=== PATIENT | male | born 1955 | race African-American/Black ===

== ENCOUNTER 2022-10-14 20:07 | Emergency (ER) | payer MEDICAID ==
[~2022-10-14] VITALS: Ht 172.7 cm; Wt 99.8 kg
[2022-10-14 20:09] VITALS: BP 142/77
[2022-10-14 20:10] VITALS: BP 142/77
[2022-10-14 21:42] LABS: BASOPHILS % (AUTO) 0.6 % (0.0-2.0); EOSINOPHILS # (AUTO) 0.1 K/uL (0-0.4); EOSINOPHILS % (AUTO) 2.4 % (0.0-4.0); HEMATOCRIT 37.7 % (36-52); HEMOGLOBIN 12.5 g/dL (12.0-18.0); LYMPHOCYTES # (AUTO) 1.3 K/uL (2.0-11.5); LYMPHOCYTES % (AUTO) 30.2 % (20.5-51.1); MEAN CORPUSCULAR HEMOGLOBIN 28 pg (27-31); MEAN CORPUSCULAR HGB CONC 33 g/dL (33-37); MEAN CORPUSCULAR VOLUME 84.4 fL (80-94); MONOCYTES # (AUTO) 0.5 K/uL (0.8-1.0); MONOCYTES % (AUTO) 10.8 % (1.7-9.3); NEUTROPHILS # (AUTO) 2.5 K/uL (1.8-7.7); PLATELET COUNT (AUTO) 310 K/uL (140-450); RED BLOOD CELL COUNT(AUTO) 4.47 MIL/uL (4.20-6.10); RED CELL DISTRIBUTION WIDTH 15.7 % (11.6-13.7); WHITE BLOOD COUNT (AUTO) 4.4 K/uL (4.8-10.8)
[2022-10-14 22:02] LABS: ALBUMIN 3.3 g/dL (3.4-5.0); ANION GAP 9.3 (8-16); CARBON DIOXIDE 31.9 mmol/L (21-32); CREATININE 0.9 mg/dL (0.6-1.3); POTASSIUM 4.2 mmol/L (3.5-5.1); TOTAL BILIRUBIN 0.2 mg/dL (0.0-1.0)
--- NOTE | 2022-10-14 22:45 | NUR ---
Dr. Cee examining patient.
[2022-10-14] MEDS ORDERED: ACETAMINOPHEN EXTRA STRENGTH 500 MG TAB PO ONE (22:50)
--- NOTE | 2022-10-14 23:00 | NUR ---
PT TAKEN TO XRAY
--- NOTE | 2022-10-15 01:47 | NUR ---
PT TAKEN TO BED 9
--- NOTE | 2022-10-15 02:00 | NUR ---
Dr. Cee examining patient.
[2022-10-15] MEDS ORDERED: ACET-10509 PO (02:05)
--- NOTE | 2022-10-15 02:10 | NUR ---
Patient does not wish to proceed with medical care recommended by . Patient given information related to possible complications, up to and including , which could occur as a result of leaving hospital at this time. Patient verbalizes understanding of risks involved leaving against medical advice. Patient has signed AMA form.
[2022-10-16] MEDS ORDERED: NAPR-54 PO (09:40)
== END 2022-10-15 02:10 | disposition home or self-care (01) ==
LOC: MED 20:07
DX: M79.604 Pain in right leg (principal); I10 Essential (primary) hypertension; Z79.899 Other long term (current) drug therapy; Z98.890 Other specified postprocedural states
CPT/HCPCS: 36415; 73502; 80053; 85025; 99284

== ENCOUNTER 2022-10-16 05:47 | Emergency (ER) | payer MEDICAID ==
[~2022-10-16] VITALS: Ht 172.7 cm; Wt 99.8 kg
[~2022-10-16 05:47] MED LIST: ACET-10509 PO
[2022-10-16 05:55] VITALS: BP 179/98
--- NOTE | 2022-10-16 06:10 | NUR ---
Provided sandwiches and orange juice as request
--- NOTE | 2022-10-16 06:56 | NUR ---
Patient taken to bed 1.
[2022-10-16] MEDS ORDERED: KETOROLAC 30 MG/ML VIAL IVP ONE (07:10)
--- NOTE | 2022-10-16 07:42 | NUR ---
ON DUTY RECEIVED PT LYING ON BED LETHARGIC. IV STARTED @RAC 20G. TORADOL GIVEN IVP. LAB DRAWN BY THE WAY.
[2022-10-16 08:34] LABS: BASOPHILS % (AUTO) 0.5 % (0.0-2.0); EOSINOPHILS # (AUTO) 0.1 K/uL (0-0.4); EOSINOPHILS % (AUTO) 1.3 % (0.0-4.0); HEMATOCRIT 39.1 % (36-52); HEMOGLOBIN 12.8 g/dL (12.0-18.0); LYMPHOCYTES # (AUTO) 0.9 K/uL (2.0-11.5); LYMPHOCYTES % (AUTO) 18.4 % (20.5-51.1); MEAN CORPUSCULAR HEMOGLOBIN 28 pg (27-31); MEAN CORPUSCULAR HGB CONC 33 g/dL (33-37); MEAN CORPUSCULAR VOLUME 84.4 fL (80-94); MONOCYTES # (AUTO) 0.5 K/uL (0.8-1.0); MONOCYTES % (AUTO) 9.3 % (1.7-9.3); NEUTROPHILS # (AUTO) 3.6 K/uL (1.8-7.7); NEUTROPHILS % (AUTO) 70.5 % (42.2-75.2); PLATELET COUNT (AUTO) 293 K/uL (140-450); RED BLOOD CELL COUNT(AUTO) 4.63 MIL/uL (4.20-6.10); RED CELL DISTRIBUTION WIDTH 15.4 % (11.6-13.7); WHITE BLOOD COUNT (AUTO) 5.1 K/uL (4.8-10.8)
[2022-10-16 09:11] LABS: ALBUMIN 3.4 g/dL (3.4-5.0); ANION GAP 9.9 (8-16); CARBON DIOXIDE 34.9 mmol/L (21-32); CREATININE 0.7 mg/dL (0.6-1.3); PHOSPHORUS 2.8 mg/dL (2.5-4.9); POTASSIUM 3.8 mmol/L (3.5-5.1); TOTAL BILIRUBIN 0.4 mg/dL (0.0-1.0)
[2022-10-16] MEDS ORDERED: NAPR-54 PO (09:40)
--- NOTE | 2022-10-16 10:05 | NUR ---
PER MD ORDER, PT WAS D/C'D HOME. DRESSING WAS ON WITH ASSISTANCE OF EMT. PT WAS W/C OUT ED BY EMT. Addendum: 10/16/22 at 1019 by [id number] DISGUSSED WITH CHARGE FELISHA RUTLEDGE, THEN W/C'D PT OUT OF ED AND PUT PT TO .
--- NOTE | 2022-10-16 10:05 | NUR ---
Patient discharged with v/s stable. Written and verbal after care instructions given and explained. Patient verbalized understanding. Wheel Chair Assisted with . All questions addressed prior to discharge. Advised to follow up with PMD.
[2022-10-16 10:07] VITALS: BP 134/75
[2022-10-16 12:06] LABS: BARBITURATE, URINE NEGATIVE ng/ml (NEG <=200); BENZODIAZEPINE, URINE NEGATIVE ng/mL (NEG <=200); CANNABINOID, URINE NEGATIVE ng/mL (NEG <=50); COCAINE, URINE NEGATIVE ng/mL (NEG <=300); OPIATE, URINE NEGATIVE ng/mL (NEG <=2000); PHENCYCLIDINE SCREEN,URINE NEGATIVE ng/mL (NEG <=25)
[2022-10-16] MEDS ORDERED: INTUBATION KIT MC ONE (15:18)
== END 2022-10-16 10:07 | disposition home or self-care (01) ==
LOC: MED 05:47
DX: M25.551 Pain in right hip (principal); Z20.822 Contact with and (suspected) exposure to COVID-19; R25.2 Cramp and spasm; I10 Essential (primary) hypertension; H54.7 Unspecified visual loss; F17.200 Nicotine dependence, unspecified, uncomplicated; Z98.890 Other specified postprocedural states; Z79.899 Other long term (current) drug therapy
CPT/HCPCS: 36415; 73552; 80053; 80305; 82553; 83605; 83735; 84100; 85025; 85651; 86140; 87040; 87426; 96374; 99284; J1885

== ENCOUNTER 2022-10-16 12:27 | Inpatient (IN) | payer OTHER ==
[~2022-10-16] VITALS: Ht 172.7 cm; Wt 99.8 kg
[~2022-10-16 12:27] MED LIST changes: +NAPR-54 PO
--- NOTE | 2022-10-16 12:33 | NUR ---
TO BED 7
[2022-10-16 12:39] VITALS: BP 146/87
--- NOTE | 2022-10-16 12:40 | NUR ---
66 y/o male [employer], pt was dx earlier today with his wheelchair, pt wheeled to bus stop. per fire, pt had fallen out of wheelchair and into street. pd placed pt on hold for gravely disabled. pt c/o head and groin pain post fall. a&ox4, ambulates with heavy assist. pt came in with wheelchair and belongings, taken by security. pt is denying harm to self or others, denies SI at this time. 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 pmh: htn, bph, blind nka
--- NOTE | 2022-10-16 12:47 | NUR ---
Patient was taken to [place] via [place].
[2022-10-16 14:38] LABS: ACETAMINOPHEN < 0.5 ug/ml (10-30); SALICYLATE < 2.8 mg/dL (2.8-20.0)
--- NOTE | 2022-10-16 14:43 | NUR ---
Justine smiley in [facility] - 10/16/22 at 1444 by JEFF Patient taken to radiology via wheelchair.
--- NOTE | 2022-10-16 14:52 | NUR ---
66 Y/O MALE PT IS ON A 51/50 HOLD FOR BEING GRAVELY DISABLED BY [facility]. SWELLING IN BOTH FEET WITH +1 EDEMA. PT DENIES ANY PAIN, NVD, FEVER OR CHILLS. PT APPEARS PARANOID/CONFUSED. PT STATED "ARE YOU GOING TO GIVE ME A SPECIAL PILL." NKA PMH-PT DENIES ANY MEDICAL HISTORY
[2022-10-16 16:40] LABS: BARBITURATE, URINE NEGATIVE ng/ml (NEG <=200); BENZODIAZEPINE, URINE NEGATIVE ng/mL (NEG <=200); CANNABINOID, URINE NEGATIVE ng/mL (NEG <=50); COCAINE, URINE NEGATIVE ng/mL (NEG <=300); OPIATE, URINE NEGATIVE ng/mL (NEG <=2000); PHENCYCLIDINE SCREEN,URINE NEGATIVE ng/mL (NEG <=25)
--- NOTE | 2022-10-16 18:00 | NUR ---
DINNER PROVIDED.TOLERATED WELL
--- NOTE | 2022-10-16 19:21 | NUR ---
Pt report given to MINI MORALES. Transfer of care at this time.
--- NOTE | 2022-10-16 19:40 | NUR ---
Assumed care of pt from Hyun INSPECTOR SHELLS and Dania [facility]. Pt is awake and alert, no c/o discomfort.
--- NOTE | 2022-10-16 23:55 | NUR ---
PT RESTING IN BED. RESP EVEN AND UNLABORED. HOB ELEVATED. PT DENIES HAVING ANY PAIN OR SOB. SIDE RAILS ARE UP X2 BED AT LOWEST POSITION AND LOCKED IN PLACE. PT IS IN VIEW FROM NURSING STATION
--- NOTE | 2022-10-17 00:11 | NUR ---
CONFRIMED WITH LAB ON URINE SPECIMAN COLLECTED FOR UDS TO BE RAN ALSO FOR UA.
[2022-10-17 00:19] LABS: APPEARANCE,URINE CLEAR (CLEAR); BILIRUBIN,URINE NEGATIVE (NEGATIVE); BLOOD, URINE NEGATIVE (NEGATIVE); COLOR,URINE YELLOW (YELLOW); LEUKOCYTE ESTERASE ,URINE 1+ (NEGATIVE); NITRITE, URINE NEGATIVE (NEGATIVE); UGLUCOSE NEGATIVE (NEGATIVE)
--- NOTE | 2022-10-17 01:26 | NUR ---
COMFIRMED WITH LAB PCR INHOUSE COLLECTED.
[2022-10-17] MEDS ORDERED: NACL 0.9% 1,000 ML IV ONE (01:30)
[2022-10-17] MEDS ORDERED: cefTRIAXone 1,000 MG VIAL ONE (01:40)
--- NOTE | 2022-10-17 01:49 | NUR ---
IV INITIATED 18G R FA. BLOOD AND CULTURE WITHDRAWAL, HANDED TO LAB.
[2022-10-17 01:55] LABS: BASOPHILS % (AUTO) 0.7 % (0.0-2.0); EOSINOPHILS # (AUTO) 0.1 K/uL (0-0.4); EOSINOPHILS % (AUTO) 2.1 % (0.0-4.0); HEMATOCRIT 32.4 % (36-52); HEMOGLOBIN 10.8 g/dL (12.0-18.0); LYMPHOCYTES # (AUTO) 1.3 K/uL (2.0-11.5); MEAN CORPUSCULAR HEMOGLOBIN 28 pg (27-31); MEAN CORPUSCULAR HGB CONC 33 g/dL (33-37); MEAN CORPUSCULAR VOLUME 84.4 fL (80-94); MONOCYTES # (AUTO) 0.6 K/uL (0.8-1.0); MONOCYTES % (AUTO) 12.7 % (1.7-9.3); NEUTROPHILS # (AUTO) 2.5 K/uL (1.8-7.7); NEUTROPHILS % (AUTO) 55.5 % (42.2-75.2); PLATELET COUNT (AUTO) 249 K/uL (140-450); RED BLOOD CELL COUNT(AUTO) 3.84 MIL/uL (4.20-6.10); RED CELL DISTRIBUTION WIDTH 15.2 % (11.6-13.7); WHITE BLOOD COUNT (AUTO) 4.5 K/uL (4.8-10.8)
[2022-10-17 01:58] LABS: ANION GAP 11.1 (8-16); CREATININE 0.8 mg/dL (0.6-1.3); POTASSIUM 4.1 mmol/L (3.5-5.1)
--- NOTE | 2022-10-17 02:05 | NUR ---
Rocephin IVPB started on right forearm IV
--- NOTE | 2022-10-17 03:44 | NUR ---
PATIENT COMPLAINED OF LOWER BACK PAIN. ALEKS SPENCER MADE AWARE. VERBAL ORDER FOR ACETAMINOPHEN 1000MG PO .
[2022-10-17] MEDS ORDERED: ACETAMINOPHEN EXTRA STRENGTH 500 MG TAB PO ONE (03:45)
--- NOTE | 2022-10-17 04:04 | NUR ---
Tylenol given was given for backpain
--- NOTE | 2022-10-17 06:35 | NUR ---
Patient will be admitted to care of Dr. Jr Christianson. Admited to med surg. Will go to room 107B. Belongings list completed. Report to CARMEN Murillo
[2022-10-17 06:50] VITALS: BP 117/59
--- NOTE | 2022-10-17 06:50 | NUR ---
RECEIVED PT FROM ER NURSE MINI. PT CAME TO [facility] UNIT VIA GURNEY. PT AWAKE. PT IS BLIND. 5150-GRAVELY DISABLED, ENDORSED BY PAPER FINISHER. RESPIRATIONS EVEN AND UNLABORED ON RA. NO C/O OF PAIN. NO DISTRESS NOTED. V/S TAKEN, STABLE. MRSA SWAB DONE. PT CONTINENT TO BOWEL AND BLADDER. PROVIDED URINAL. PER ER NURSE PT USES URINAL IN ER. PT ORIENTED TO ROOM, UNIT AND ROUTINE. IV SITE ON RFA 18G, SL. CALL LIGHT WITHIN REACH. SAFETY PRECAUTIONS IN PLACE. FOR ENDORSEMENT TO DAY SHIFT NURSE FOR ADMISSION.
--- NOTE | 2022-10-17 07:30 | NUR ---
BRIEF REPORT RECEIVED ON PT 107B. PER .NET DEVELOPER RAYMOND, SHE WAS NOT SURE IF THE PT WAS ON A 5150 HOLD, THE PHYSICIAN NOTES DICTATED SO. ENDORSED PT TO PRIMARY RN SANDRA.
--- NOTE | 2022-10-17 07:30 | NUR ---
ENDORSED PT TO CHASITY GONZALEZ. PT IS IN STABLE CONDITION. SAFETY PRECAUTIONS IN PLACE.
[2022-10-17] MEDS ORDERED: POTASSIUM CHLORIDE 10 MEQ TABER PO PRN (08:25)
[2022-10-17] MEDS ORDERED: ONDANSETRON 4 MG/2 ML VIAL IM/IVP PRN (08:25)
[2022-10-17] MEDS ORDERED: DOCUSATE SODIUM 100 MG GELCAP PO PRN (08:25)
[2022-10-17] MEDS ORDERED: guaiFENesin DM 200/20 MG-10 ML 10 ML UDC PO PRN (08:25)
[2022-10-17] MEDS ORDERED: ACETAMINOPHEN 325 MG TAB PO PRN (08:25)
[2022-10-17] MEDS ORDERED: NACL 0.9% 1,000 ML IV SCH (08:30)
[2022-10-17] MEDS: PANTOPRAZOLE 40 MG TABEC PO SCH (09:30)
--- NOTE | 2022-10-17 09:55 | NUR ---
CHECKED PT'S CHART, SAW ACTIVE 5150 HOLD FORM. MOVED PT TO RM 109B, NOTIFIED DR. LIN. VALLADARES AT THE BEDSIDE.
[2022-10-17] MEDS: HYDROcodone/APAP 7.5/325 MG 1 TAB PO PRN ×3 (10:33→20:48)
[2022-10-17 11:15] LABS: PROTHROMBIN TIME 9.9 secs (10.8-13.4)
--- NOTE | 2022-10-17 11:25 | NUR ---
PATIENT HAS BEEN SCREENED AND CATEGORIZED MODERATE NUTRITION RISK. PATIENT WILL BE SEEN WITHIN 3-5 DAYS OF ADMISSION. 10/20/2212/27/[address] BY [address]
[2022-10-17 11:28] LABS: AMYLASE 51 U/L (25-115); CHOL/HDL RATIO 2.3 (1-4.5); FREE T4 (FREE THYROXINE) 0.81 ng/dL (0.76-1.46); HDL CHOLESTEROL 60 mg/dL (40-60); LDL (CALC) 69 mg/dL (60-100); LIPASE 188 U/L (73-393); MAGNESIUM 1.9 mg/dL (1.8-2.4); PHOSPHORUS 2.7 mg/dL (2.5-4.9); TRIGLYCERIDES 41 mg/dL (30-150)
[2022-10-17] MEDS: NACL 0.9% 1,000 ML IV SCH ×3 (13:00→23:15)
--- NOTE | 2022-10-17 15:00 | NUR ---
DISCHARGE PLANNING PATIENT IS A 66 YEAR OLD MALE ADMITTED ON 10/17/2022 TO [facility]/ED DUE TO UTI. AND UNDER 5150 HOLD DUE TO GRAVELY DISABILITY. DURING ASSESSMENT WITH PATIENT HE TOLD SW THAT HE IS NOT GRAVELY DISABLE AND THAT HE HAS BEEN IN THE STREETS FOR A WHILE ABOUT 8 YEARS. DUE TO CONFLICT WITH FAMILY DUE TO HIS LIFE STYLE. PER PATIENT HE IS PARTIALLY BLIND HOWEVER; STILL ABLE TO SEE SOME. PER PATIENT HE HAS A TENT IN [place] WHERE HE HAS LIVE FOR A WHILE BECAUSE HE REFUSES TO PAY RENT OR ANY ROOM AND BOARD THAT WILL TAKE HIS MONEY. PER PATIENT HE GETS ABOUT $1,200.00 A MONTH FROM [employer] AND WILL NOT PAY FOR A ROOM AND BOARD. HE IS OPEN TO GET THE RESOURCES TO [place] THE SW PROVIDED FOR HIM DURING THE MEETING BUT WILL NOT PAY TO STAY IN ANY PLACE" PER PATIENT HE HAS NO ADVANCE DIRECTIVES AND DECLINED ALL INF. FORMS PROVIDED BY MALATHI. PATIENT REPORTED THAT HE MAKES HIS OWN MEDICAL DECISIONS NO ONE ELSE. PATIENT REPORTED HAVING A DAUGHTER STEFANIE DENNY WITH WHO SHE TALKS TO SOME TIMES AND SHE ALSO SOMETIMES HELPS HIM UP BUT ITS RARE WHEN THEY SEE EACH OTHER. PER PATIENT HIS ADDRESS ON FILE IS HIS [address] AND WANTS TO LEAVE INFORMATION IN CASE SHE HAS TO GET IN CONTACT WITH THEM. BUT ALSO HAS NOT SPOKE TO THEM IN A WHILE. PET PATIENT HE IS NOT TAKING ANY MEDICATIONS BUT WHEN HE GETS HIS PRESCRIPTIONS HE GETS THEM FROM [facility] [place] [facility]. PER PATIENT HE HAS ONLY A WHEELCHAIR HIS DME AND WHEN HE IS DISCHARGE HE WANTS ASSISTANCE WITH TRANSPORTATION BACK TO HIS TENT IN [place] OR A BUS PASS. MALATHI EXPLAINED TO PATIENT THE NEED TO FOLLOW UP WITH AN APPOINTMENT WITH PCP WITHIN 5-7 DAYS AFTER DC FROM [facility]. PATIENT DECLINED AND STATED THAT HE WANTED TO MAKE HIS OWN APPOINTMENTS AND DECLINED FOR SW TO DO AN APPOINTMENT FOR PATIENT. PATIENT STATED, I CAN TAKE INFORMATION TO LOCAL LOW COST CLINICS BUT "NO I'LL MAKE MY APPOINTMENTS" PER PATIENT REQUESTED A BUS PASS WHEN HE IS READY FOR DISCHARGE. MALATHI/OBI WILL FOLLOW UP WITH PATIENT NEEDED.
[2022-10-17 17:21] LABS: BARBITURATE, URINE NEGATIVE ng/ml (NEG <=200); BENZODIAZEPINE, URINE NEGATIVE ng/mL (NEG <=200); CANNABINOID, URINE NEGATIVE ng/mL (NEG <=50); COCAINE, URINE NEGATIVE ng/mL (NEG <=300); OPIATE, URINE NEGATIVE ng/mL (NEG <=2000); PHENCYCLIDINE SCREEN,URINE NEGATIVE ng/mL (NEG <=25)
--- NOTE | 2022-10-17 19:30 | NUR ---
RECEIVED REPORT FROM DAY SHIFT NURSE SANDRA FOR CONTINUITY OF CARE. PATIENT IS A&O X1. PATIENT IS ON ROOM AIR, BREATHING IS NORMAL WITH SYMMETRICAL RISE AND FALL OF CHEST. IV IS A RFA 18G; RUNNING NS 135. PATIENT IS ON A 51/50; WITH A SITTER PRESENT. PATIENT IS LYING IS SUPINE. PATIENT IS PARTIALLY BLIND, ONLY SEES SHADOWS. BED IS IN LOWEST POSITION, WHEELS LOCKED, CALL LIGHT IN PLACE. WILL CONTINUE TO OBSERVE PATIENT.
[2022-10-17 20:00] VITALS: BP 134/67
--- NOTE | 2022-10-17 21:00 | NUR ---
GAVE PATIENT NORCO FOR 5/10 LEG PAIN. MEDICATION GIVEN SUCCESSFULLY WITHOUT ANY DIFFICULTY IN SWALLOWING. PATIENT'S EYES ARE CONTINUOUSLY WIDE OPEN WITHOUT ANY BLINKING; PATIENT STATES HE IS NOT ABLE TO SHUT HIS EYES. PATIENT THANKED ME FOR THE PAIN MEDICATION. WILL CONTINUE TO OBSERVE PATIENT.
--- NOTE | 2022-10-17 23:15 | NUR ---
ADMINISTERED PATIENT ROCEPHIN IVPB. IVPB WAS STARTED SUCCESSFULLY WITHOUT ANY ISSUES. EMPTIED PATIENT'S URINAL OF 300ML OF URINE. PATIENT IS LYING IN BED MUMBLING TO HIMSELF. BREATHING IS NORMAL WITH SYMMETRICAL RISE AND FALL OF CHEST. WILL CONTINUE TO OBSERVE PATIENT.
[2022-10-18] MEDS: HYDROcodone/APAP 7.5/325 MG 1 TAB PO PRN ×2 (01:39→09:46)
--- NOTE | 2022-10-18 01:45 | NUR ---
ADMINISTERED NORCO TO PATIENT FOR 6/10 LEG PAIN. MEDICATION ADMINISTERED SUCCESSFULLY WITHOUT ANY DIFFICULTY SWALLOWING. BREATHING IS NORMAL WITH SYMMETRICAL RISE AND FALL OF CHEST. WILL CONTINUE TO OBSERVE PATIENT.
[2022-10-18 04:00] VITALS: BP 127/61
--- NOTE | 2022-10-18 05:30 | NUR ---
WAS CALLED TO PATIENT'S ROOM. PATIENT PULLED OUT IV AND KNOCKED OVER URINAL. I STOPPED IV FROM RUNNING; ASSESSED IV AREA (NO LONGER BLEEDING). PATIENT HAD BLOOD ON SHEETS, BLANKETS, PILLOW CASE AND GOWN. WAS GIVEN NEW SHEETS, TOWELS AND GOWN BY CHARGE NURSE RAYMOND. REMOVED PATIENT'S GOWN AND SHEETS; GAVE PATIENT NEW GOWN AND PLACED NEW SHEETS ON THE BED. PATIENT WAS ALSO CLEANED WITH JAIME WIPES BEFORE NEW GOWN WAS PLACE ON PATIENT. THE FLOOR WAS CLEANED WITH THE TOWELS AND WIPED WITH DIRECTOR FOUNDATION CLOTH. PATIENT IS LYING ON BED MUMBLING TO HIMSELF. IV WAS TURNED OFF. WILL CONTINUE TO OBSERVE PATIENT.
[2022-10-18] MEDS: NACL 0.9% 1,000 ML IV SCH ×3 (06:08→21:30)
[2022-10-18 06:38] LABS: BASOPHILS % (AUTO) 0.3 % (0.0-2.0); EOSINOPHILS # (AUTO) 0.1 K/uL (0-0.4); EOSINOPHILS % (AUTO) 1.2 % (0.0-4.0); HEMOGLOBIN 11.1 g/dL (12.0-18.0); LYMPHOCYTES # (AUTO) 1.4 K/uL (2.0-11.5); LYMPHOCYTES % (AUTO) 22.7 % (20.5-51.1); MEAN CORPUSCULAR HEMOGLOBIN 27 pg (27-31); MEAN CORPUSCULAR HGB CONC 33 g/dL (33-37); MEAN CORPUSCULAR VOLUME 84.1 fL (80-94); MONOCYTES # (AUTO) 0.7 K/uL (0.8-1.0); MONOCYTES % (AUTO) 12.1 % (1.7-9.3); NEUTROPHILS # (AUTO) 3.9 K/uL (1.8-7.7); NEUTROPHILS % (AUTO) 63.7 % (42.2-75.2); PLATELET COUNT (AUTO) 260 K/uL (140-450); RED BLOOD CELL COUNT(AUTO) 4.04 MIL/uL (4.20-6.10); RED CELL DISTRIBUTION WIDTH 15.3 % (11.6-13.7); WHITE BLOOD COUNT (AUTO) 6.1 K/uL (4.8-10.8)
[2022-10-18 07:03] LABS: ANION GAP 10.9 (8-16); CARBON DIOXIDE 30.4 mmol/L (21-32); CREATININE 0.9 mg/dL (0.6-1.3); POTASSIUM 4.3 mmol/L (3.5-5.1)
--- NOTE | 2022-10-18 07:30 | NUR ---
ENDORSED TO DAY SHIFT NURSE MALLORIE FOR CONTINUITY OF CARE. PATIENT IS STABLE.
[2022-10-18 08:00] VITALS: BP 148/73
[2022-10-18 08:08] LABS: T4 (THYROXINE) 4.9 ug/dL (4.5-12.0)
[2022-10-18] MEDS: PANTOPRAZOLE 40 MG TABEC PO SCH (09:45)
[2022-10-18] MEDS: CHLORHEXADINE GLUC 2% CLOTH TP SCH (12:00)
[2022-10-18] MEDS ORDERED: CHLORHEXADINE GLUC 2% CLOTH TP SCH (13:00)
[2022-10-18] MEDS ORDERED: MUPIROCIN CA NASAL 2% 1GM TUBE NS SCH (13:00)
[2022-10-18] MEDS: MUPIROCIN CA NASAL 2% 1GM TUBE NS SCH (13:30)
--- NOTE | 2022-10-18 14:30 | NUR ---
PATIENT RECEIVED IN BED, ASLEEP, NOT IN ANY FORM OF DISTRESS. ON 5150 HOLD. SITTER AT BEDSIDE. SAFETY MEASURES MAINTAINED. WILL CONTINUE TO MONITOR.
[2022-10-18 16:00] VITALS: BP 141/72
--- NOTE | 2022-10-18 19:00 | NUR ---
PATIENT REMAINS STABLE. SITTER AT BEDSIDE AT ALL TIMES. PATIENT REFUSING IV FLUIDS. DRINKING AND EATING WELL. SAFETY MEASURES MAINTAINED.
--- NOTE | 2022-10-18 20:25 | NUR ---
RECEIVED REPORT FROM MORNING SHIFT NURSE GINGER. PATIENT AWAKE IN BED. APPEARS TO BE CALM. NO DISTRESS NOTED. RESPIRATION EVEN UNLABORED. NO COMPLAINTS OF PAIN. SAFETY MEASURES IN PLACE. WITH 1:1 SITTER AT ALL TIMES.
[2022-10-18] MEDS: ARIPiprazole 10 MG TAB PO SCH (20:47)
--- NOTE | 2022-10-18 20:47 | NUR ---
ADMINISTERED SCHEDULED MEDICATION.
[2022-10-18] MEDS: COMMUNICATION ORDER MC SCH (23:00)
[2022-10-18] MEDS ORDERED: cefTRIAXone 1,000 MG VIAL ONE (23:09)
[2022-10-18] MEDS ORDERED: LIDOCAINE MPF 1% 5 ML ONE (23:12)
[2022-10-18] MEDS: cefTRIAXone 1,000 MG in LIDOCAINE MPF 1% 2.1 ML INJ SCH (23:15)
--- NOTE | 2022-10-18 23:15 | NUR ---
ADMINISTERED ROCEPHIN IM ON THE LEFT DELTOID, TOLERATED WELL.
[2022-10-19] VITALS: BP 130/59
[2022-10-19] MEDS: NACL 0.9% 1,000 ML IV SCH ×3 (04:55→19:45)
[2022-10-19 07:16] LABS: BASOPHILS % (AUTO) 0.4 % (0.0-2.0); EOSINOPHILS # (AUTO) 0.1 K/uL (0-0.4); EOSINOPHILS % (AUTO) 1.3 % (0.0-4.0); HEMATOCRIT 33.8 % (36-52); HEMOGLOBIN 11.1 g/dL (12.0-18.0); LYMPHOCYTES # (AUTO) 1.3 K/uL (2.0-11.5); LYMPHOCYTES % (AUTO) 24.1 % (20.5-51.1); MEAN CORPUSCULAR HEMOGLOBIN 28 pg (27-31); MEAN CORPUSCULAR HGB CONC 33 g/dL (33-37); MEAN CORPUSCULAR VOLUME 83.9 fL (80-94); MONOCYTES # (AUTO) 0.8 K/uL (0.8-1.0); MONOCYTES % (AUTO) 14.1 % (1.7-9.3); NEUTROPHILS # (AUTO) 3.2 K/uL (1.8-7.7); NEUTROPHILS % (AUTO) 60.1 % (42.2-75.2); PLATELET COUNT (AUTO) 260 K/uL (140-450); RED BLOOD CELL COUNT(AUTO) 4.02 MIL/uL (4.20-6.10); RED CELL DISTRIBUTION WIDTH 15.4 % (11.6-13.7); WHITE BLOOD COUNT (AUTO) 5.4 K/uL (4.8-10.8)
--- NOTE | 2022-10-19 07:20 | NUR ---
ENDORSED TO DAY SHIFT NURSE FOR CONTINUITY OF CARE.
[2022-10-19 07:26] LABS: ANION GAP 8.5 (8-16); CARBON DIOXIDE 32.6 mmol/L (21-32); CREATININE 0.8 mg/dL (0.6-1.3); POTASSIUM 4.1 mmol/L (3.5-5.1)
--- NOTE | 2022-10-19 07:30 | NUR ---
RECEIVED REPORT FROM NIGHTSMDFT NURSE CLARE FOR CONTINUITY OF CARE. PT IN STABLE CONDITION, SITTER AT THE BEDSIDE. CONTACT ISOLATION PRECAUTIONS IN EFFECT FOR MRSA NARES.
--- NOTE | 2022-10-19 07:44 | NUR ---
CALLED [facility] TO RENEW PT'S [address] RAMIREZ'S RECOMMENDATION. NO ETA GIVEN.
[2022-10-19 08:00] VITALS: BP 156/85
--- NOTE | 2022-10-19 08:15 | NUR ---
SKYLAR JASON, STATED THEY CANNOT RENEW 5150 HOLD UNTIL AFTER EXPIRATION. RECOMMENDED I CALL AGAIN AT 1100.
[2022-10-19] MEDS: PANTOPRAZOLE 40 MG TABEC PO SCH (08:22)
[2022-10-19] MEDS: HYDROcodone/APAP 7.5/325 MG 1 TAB PO PRN ×2 (08:23→19:50)
--- NOTE | 2022-10-19 08:27 | NUR ---
MEDICATED PT WITH PRN NORCO FOR BILATERAL LEG PAIN.
[2022-10-19] MEDS: CHLORHEXADINE GLUC 2% CLOTH TP SCH (12:00)
[2022-10-19] MEDS: MUPIROCIN CA NASAL 2% 1GM TUBE NS SCH (12:00)
--- NOTE | 2022-10-19 12:30 | NUR ---
[place] [employer] OFFICER ARRIVED TO PERFORM REEVALUATION FOR 5150 HOLD.
--- NOTE | 2022-10-19 13:26 | NUR ---
SPOKE TO OFFICER TAYLA REGARDING 109B'S 5150 STATUS, PER HIS EVALUATION, HE STATED THE PT DOES NOT MEET THE CRITERIA TO CONTINUE THE HOLD, AND ASSURED THAT HIS CHAIN OF COMMAND AND CCRT THAT THE PT DOES NOT REQUIRE THE 5150 HOLD HE IS RECEIVING CARE AN INPATIENT. NOTIFIED DR. WILLIAMSON AND DR. RAMIREZ.
[2022-10-19 16:00] VITALS: BP 150/80
--- NOTE | 2022-10-19 17:00 | NUR ---
PT ATTEMPTED TO CRAWL OUT OF ROOM TO FIND HIS WHEELCHAIR. PT PLACED BACK IN BED.
--- NOTE | 2022-10-19 19:30 | NUR ---
ENDORSED PT TO NIGHTSHIFT NURSE CLARE FOR CONTINUITY OF CARE. PT IN STABLE CONDITION.
--- NOTE | 2022-10-19 19:31 | NUR ---
RECEIVED PATIENT FROM DAY SHIFT NURSE WITH SITTER. PATIENT IS WELL RESTED ON ROOM AIR. NO S/S OF RESPIRATORY DISTRESS. BREATHING REGULAR NON LABORED. SAFETY PRECAUTIONS IN PLACE BED IN THE LOWEST POSITION WHEELS LOCKED WITH HEAD OF BED SLIGHTLY ELEVATED. CALL LIGHT WITHIN REACH.
--- NOTE | 2022-10-19 19:50 | NUR ---
PATIENT COMPLAINED OF BILATERAL LEG PAIN, MEDICATED WITH NORCO PRN.
[2022-10-19] MEDS: ARIPiprazole 10 MG TAB PO SCH (21:08)
[2022-10-19] MEDS: ZOLPIDEM 5 MG TAB PO PRN (21:09)
[2022-10-19] MEDS ORDERED: LIDOCAINE MPF 1% 5 ML ONE (21:12)
--- NOTE | 2022-10-19 21:12 | NUR ---
ROCEPHIN ADMINISTERED IM ON THE RIGHT DELTOID PER MD ORDER.
[2022-10-19] MEDS: cefTRIAXone 1,000 MG in LIDOCAINE MPF 1% 2.1 ML INJ SCH (21:25)
[2022-10-19] MEDS: COMMUNICATION ORDER MC SCH (21:29)
[2022-10-20] VITALS: BP 135/53
[2022-10-20] MEDS: NACL 0.9% 1,000 ML IV SCH ×3 (03:10→18:00)
[2022-10-20 07:24] LABS: BASOPHILS % (AUTO) 0.7 % (0.0-2.0); EOSINOPHILS # (AUTO) 0.1 K/uL (0-0.4); EOSINOPHILS % (AUTO) 2.6 % (0.0-4.0); HEMATOCRIT 33.9 % (36-52); HEMOGLOBIN 11.3 g/dL (12.0-18.0); LYMPHOCYTES # (AUTO) 1.3 K/uL (2.0-11.5); LYMPHOCYTES % (AUTO) 23.1 % (20.5-51.1); MEAN CORPUSCULAR HEMOGLOBIN 28 pg (27-31); MEAN CORPUSCULAR HGB CONC 33 g/dL (33-37); MEAN CORPUSCULAR VOLUME 83.8 fL (80-94); MONOCYTES # (AUTO) 0.7 K/uL (0.8-1.0); MONOCYTES % (AUTO) 13.2 % (1.7-9.3); NEUTROPHILS # (AUTO) 3.3 K/uL (1.8-7.7); NEUTROPHILS % (AUTO) 60.4 % (42.2-75.2); PLATELET COUNT (AUTO) 269 K/uL (140-450); RED BLOOD CELL COUNT(AUTO) 4.05 MIL/uL (4.20-6.10); RED CELL DISTRIBUTION WIDTH 15.2 % (11.6-13.7); WHITE BLOOD COUNT (AUTO) 5.5 K/uL (4.8-10.8)
[2022-10-20 07:25] LABS: CREATININE 0.8 mg/dL (0.6-1.3)
--- NOTE | 2022-10-20 07:28 | NUR ---
ENDORSED PATIENT TO DAY SHIFT NURSE FOR CONTINUITY OF CARE. PATIENT STABLE
[2022-10-20 08:00] VITALS: BP 120/60
[2022-10-20] MEDS: PANTOPRAZOLE 40 MG TABEC PO SCH (09:20)
[2022-10-20] MEDS: CHLORHEXADINE GLUC 2% CLOTH TP SCH (12:00)
[2022-10-20] MEDS: MUPIROCIN CA NASAL 2% 1GM TUBE NS SCH (12:00)
--- NOTE | 2022-10-20 12:32 | NUR ---
PT CRAWLED TO BATHROOM ASKING FOR HIS WHEELCHAIR TO GO HOME. REORIENTED PT, PT STATED HE WAS READY TO LEAVE AND JUST NEEDED HIS WHEELCHAIR. WAS ABLE TO GET PT BACK INTO BEDSIDE WITHOUT FURTHER INCIDENT.
--- NOTE | 2022-10-20 13:14 | NUR ---
PT ATTEMPTED TO LEAVE ROOM USING BEDSIDE TABLE WALKER, STATING "THE MAN SAID I CAN GO HOME NOW." WAS ABLE TO REDIRECT PT BACK ONTO BED WITHOUT FURTHER INCIDENT. PT IS PERSISTENTLY CONFUSED, STATING SOMEONE TOLD HIM HE CAN GO HOME. REORIENTED PT MULTIPLE TIMES.
--- NOTE | 2022-10-20 15:00 | NUR ---
PT DROPPED LUNCH TRAY AND URINAL. PAGED EVS TO CLEAN ROOM. PT WAS REDIRECTED TO BEDSIDE.
[2022-10-20 16:00] VITALS: BP 127/50
--- NOTE | 2022-10-20 19:17 | NUR ---
ENDORSED PT TO NIGHTSHIFT NURSE CLARE FOR CONTINUITY OF CARE. PT IN STABLE CONDITION.
--- NOTE | 2022-10-20 20:35 | NUR ---
PATIENT IS AWAKE ALERT ON ROOM AIR, NO SOB. LEGALLY BLIND. ALL SAFETY MEASURES ARE IN PLACE. BED IN LOW POSITION. CALL LIGHT WITHIN REACH. COMPLAINED OF BILATERAL LEG PAIN, WILL MEDICATE.
[2022-10-20] MEDS: ARIPiprazole 10 MG TAB PO SCH (20:45)
--- NOTE | 2022-10-20 20:45 | NUR ---
SCHEDULED MEDICATION DUE ADMINISTERED.
[2022-10-20] MEDS: HYDROcodone/APAP 7.5/325 MG 1 TAB PO PRN (20:46)
[2022-10-20] MEDS ORDERED: LIDOCAINE MPF 1% 5 ML ONE (21:24)
[2022-10-20] MEDS ORDERED: cefTRIAXone 1,000 MG VIAL ONE (21:25)
[2022-10-20] MEDS: cefTRIAXone 1,000 MG in LIDOCAINE MPF 1% 2.1 ML INJ SCH (21:29)
[2022-10-20] MEDS: ZOLPIDEM 5 MG TAB PO PRN (21:31)
--- NOTE | 2022-10-20 22:30 | NUR ---
URINE COLLECTED WALKED IN TO LAB.
[2022-10-20] MEDS: COMMUNICATION ORDER MC SCH (23:00)
--- NOTE | 2022-10-20 23:13 | NUR ---
Call Center will need new 5150 for placement. Please fax to [phone]
[2022-10-21] VITALS: BP 141/68
[2022-10-21] MEDS: NACL 0.9% 1,000 ML IV SCH ×4 (01:25→23:40)
--- NOTE | 2022-10-21 07:13 | NUR ---
GAVE REPORT TO DAY SHIFT NURSE FOR CONTINUITY OF CARE. PATIENT STABLE.
[2022-10-21 07:30] LABS: BASOPHILS % (AUTO) 0.5 % (0.0-2.0); EOSINOPHILS # (AUTO) 0.2 K/uL (0-0.4); EOSINOPHILS % (AUTO) 3.1 % (0.0-4.0); HEMATOCRIT 34.8 % (36-52); HEMOGLOBIN 11.5 g/dL (12.0-18.0); LYMPHOCYTES # (AUTO) 1.3 K/uL (2.0-11.5); LYMPHOCYTES % (AUTO) 22.9 % (20.5-51.1); MEAN CORPUSCULAR HEMOGLOBIN 28 pg (27-31); MEAN CORPUSCULAR HGB CONC 33 g/dL (33-37); MEAN CORPUSCULAR VOLUME 84.1 fL (80-94); MONOCYTES # (AUTO) 0.8 K/uL (0.8-1.0); MONOCYTES % (AUTO) 13.7 % (1.7-9.3); NEUTROPHILS # (AUTO) 3.4 K/uL (1.8-7.7); NEUTROPHILS % (AUTO) 59.8 % (42.2-75.2); PLATELET COUNT (AUTO) 291 K/uL (140-450); RED BLOOD CELL COUNT(AUTO) 4.14 MIL/uL (4.20-6.10); RED CELL DISTRIBUTION WIDTH 15.3 % (11.6-13.7); WHITE BLOOD COUNT (AUTO) 5.7 K/uL (4.8-10.8)
[2022-10-21 07:36] LABS: CREATININE 0.8 mg/dL (0.6-1.3)
[2022-10-21 08:00] VITALS: BP 124/55
[2022-10-21] MEDS: PANTOPRAZOLE 40 MG TABEC PO SCH (09:00)
[2022-10-21] MEDS ORDERED: ABI10 PO (10:00)
[2022-10-21] MEDS: MUPIROCIN CA NASAL 2% 1GM TUBE NS SCH (12:12)
[2022-10-21] MEDS: CHLORHEXADINE GLUC 2% CLOTH TP SCH (12:13)
[2022-10-21 17:10] VITALS: BP 130/60
--- NOTE | 2022-10-21 18:30 | NUR ---
PT HAS A DISCHARGE ORDER TO SNF FACILITY. SNF COORDINATOR CAME TO ASSESS THE PT AND JUST WAITING FOR THE URINE CULTURE RESULT AND TO GIVE THE CALL TO THE [facility] COORDINATOR [facility]- [phone]. WILL ENDORSE TO THE PM NURSE FOR CONTINUITY OF CARE.
--- NOTE | 2022-10-21 19:15 | NUR ---
RECEIVED ENDORSEMENT FROM DAY SHIFT NURSE FOR CONTINUITY OF CARE. PT IS AWAKE, ALERT AND VERBALLY RESPONSIVE. PT IS ON ROOM AIR. SKIN INTACT WITH NO SKIN BREAKS. PT HAS NO IV SITE. DIET IS REGULAR. PT IS ON STABLE CONDITION. CONTINUE TO MONITOR.
[2022-10-21] MEDS: ARIPiprazole 10 MG TAB PO SCH (21:22)
--- NOTE | 2022-10-21 21:29 | NUR ---
PT REQUESTED TO GET UP AND WOULD SIT ON THE WHEELCHAIR. EDUCATE PT THAT THIS IS NIGHT TIME, TIME TO SLEEP. PT COOPERATIVE.
[2022-10-21] MEDS ORDERED: LIDOCAINE MPF 1% 5 ML ONE (22:21)
[2022-10-21] MEDS ORDERED: cefTRIAXone 1,000 MG VIAL ONE (22:22)
[2022-10-21] MEDS: cefTRIAXone 1,000 MG in LIDOCAINE MPF 1% 2.1 ML INJ SCH (22:26)
[2022-10-21] MEDS: COMMUNICATION ORDER MC SCH (22:28)
--- NOTE | 2022-10-21 22:30 | NUR ---
PT TRYING TO GET OUT OF BED AND STATED WOULD USE WHEELCHAIR AND MOVE TO OTHER FACILITY, EDUCATE PT ABOUT THE TRANSFER.
--- NOTE | 2022-10-21 23:40 | NUR ---
NON ADMINISTER FLUID, PT HAS NO IV SITE. PT REFUSE TO BE REINSERTED.
[2022-10-22] MEDS: ZOLPIDEM 5 MG TAB PO PRN (00:52)
--- NOTE | 2022-10-22 00:52 | NUR ---
PT COMPLAINTS OF UNABLE TO SLEEP, SLEEPING MEDS ADMINISTERED ORDER.
[2022-10-22] MEDS: HYDROcodone/APAP 7.5/325 MG 1 TAB PO PRN (00:53)
--- NOTE | 2022-10-22 00:53 | NUR ---
PT COMPLAINTS OF NECK AND BACK PAIN OF 6/10. PAIN PILL NORCO ADMINISTERED ORDER.
[2022-10-22] MEDS: NACL 0.9% 1,000 ML IV SCH ×2 (07:05→11:24)
[2022-10-22 07:08] LABS: BASOPHILS % (AUTO) 0.3 % (0.0-2.0); EOSINOPHILS # (AUTO) 0.2 K/uL (0-0.4); EOSINOPHILS % (AUTO) 3.2 % (0.0-4.0); HEMATOCRIT 36.5 % (36-52); HEMOGLOBIN 12.1 g/dL (12.0-18.0); LYMPHOCYTES # (AUTO) 1.4 K/uL (2.0-11.5); LYMPHOCYTES % (AUTO) 26.4 % (20.5-51.1); MEAN CORPUSCULAR HEMOGLOBIN 28 pg (27-31); MEAN CORPUSCULAR HGB CONC 33 g/dL (33-37); MEAN CORPUSCULAR VOLUME 84.3 fL (80-94); MONOCYTES # (AUTO) 0.7 K/uL (0.8-1.0); MONOCYTES % (AUTO) 13.1 % (1.7-9.3); NEUTROPHILS # (AUTO) 2.9 K/uL (1.8-7.7); PLATELET COUNT (AUTO) 323 K/uL (140-450); RED BLOOD CELL COUNT(AUTO) 4.33 MIL/uL (4.20-6.10); WHITE BLOOD COUNT (AUTO) 5.2 K/uL (4.8-10.8)
[2022-10-22 07:20] LABS: ANION GAP 9.9 (8-16); CARBON DIOXIDE 31.4 mmol/L (21-32); CREATININE 0.8 mg/dL (0.6-1.3); POTASSIUM 4.3 mmol/L (3.5-5.1)
--- NOTE | 2022-10-22 08:10 | NUR ---
NURSES NOTE PATIENT RECEIVED AT BED SIDE , A/OX2 , VSS , AMBULATORY , CONTINENT X2 , SKIN INTACT DP WAITING FOR URIN CULTURE , NO COMPLAIN AT THIS TIME , ON REGULAR DIET , STILL UNDER [id number] .
[2022-10-22] MEDS: PANTOPRAZOLE 40 MG TABEC PO SCH (08:32)
[2022-10-22 09:27] VITALS: BP 128/69
[2022-10-22] MEDS: CHLORHEXADINE GLUC 2% CLOTH TP SCH (11:23)
[2022-10-22] MEDS: MUPIROCIN CA NASAL 2% 1GM TUBE NS SCH (11:23)
--- NOTE | 2022-10-22 11:27 | NUR ---
DC PLANNING: PATIENT GOT ACCEPTED AT [facility] CAN GO TO ROOM 18A NOTIFIED PATIENT AND HE AGREED. ARRANGED TRANSPORT WITH [facility] TRANSPORT WILL F/U WITH ETA. CM TO FOLLOW
--- NOTE | 2022-10-22 11:38 | NUR ---
NURSES NOTE PATIENT HAS DISCHARGE ORDER TO GO TO SNF , WAITING FOR [facility] TO CALL ME BACK FOR TRANSPORTATION TIME , NO COMPLAIN AT THIS TIME .
--- NOTE | 2022-10-22 15:38 | NUR ---
PATIENT TRANSFER TO [facility] ARM BAND REMOVED , NO IV , THEY PICKED HIM TO SNF .
--- NOTE | 2022-10-22 15:47 | NUR ---
I CALLED [facility] , I GIVE REPRET TO GERLAD MORALES ALL HIS QUESTION ANSWER .
--- NOTE | 2022-10-22 15:53 | NUR ---
DISCHARGE PLANNING SW COMPLETED AND FAXED PATIENT'S INFORMATION AND CLINICALS TO THE [facility] AT . WITH COMPLETED CONFIRMATION AT ABOUT 11:39AM. SW CALL [facility] AT TO VERIFY THAT PATIENT'S CLINICAL PACKET WAS RECEIVED. SPOKE TO [facility] STALLINGS FROM ADMISSIONS WHO REPORTED THAT SHE DID GOT THE PATIENT'S CLINICAL'S AND PROVIDED WITH PATIENT'S ROOM/BED NUMBER [id number] AND ACCEPTING DR. WILLIAMSON FOR TODAY AT ABOUT 15:00. SW THANKED HER FOR THE INFORMATION AND ENDED THE CALL. AT ABOUT 12:00PM SW FAXED [facility] TRANSPORTATION REQUEST FORM (HOSPITAL) TO . WITH COMPLETED CONFIRMATION AT ABOUT 12:35. SW CALL [facility] AT SPOKE TO SATYA WHO STATED THAT SHE DID RECEIVED THE TRANSPORTATION REQUEST AND WILL BE ARRANGING THE TRANSPORT TO THE SNF AT ABOUT 16:00 TODAY. MALATHI THANKED HER FOR THE INFORMATION AND ENDED THE CALL.
== END 2022-10-22 15:35 | DRG 640 ==
LOC: MED 12:27 → MMU 10-17 06:11 → MTU 10-17 06:32
PROVIDERS: ADMIT Family Medicine; ATTEND Family Medicine
DX: E86.0 Dehydration (principal); G93.41 Metabolic encephalopathy; N39.0 Urinary tract infection, site not specified; I10 Essential (primary) hypertension; D63.8 Anemia in other chronic diseases classified elsewhere; G31.9 Degenerative disease of nervous system, unspecified; Z20.822 Contact with and (suspected) exposure to COVID-19; Z59.00 Homelessness unspecified
CPT/HCPCS: 36415; 70450; 71045; 73502; 80048; 80053; 80305; 81001; 82150; 82553; 83036; 83605; 83690; 83735; 83880; 84100; 84436; 84439; 84443; 84479; 84484; 85025; 85610; 85651; 85730; 86140; 87040; 87081; 87086; 87635-QW; 96365; 97163-GP; 97530; 99285; C9803-CS; G0480; G0482; J0696; J2001; J7060

== ENCOUNTER 2022-11-08 15:46 | Emergency (ER) | payer OTHER ==
[~2022-11-08] VITALS: Ht 185.4 cm; Wt 81.6 kg
[~2022-11-08 15:46] MED LIST changes: +ABI10 PO; -ACET-10509 PO; -NAPR-54 PO
[2022-11-08 15:57] VITALS: BP 144/80
--- NOTE | 2022-11-08 16:02 | NUR ---
[facility] TRANSPORT TO BED 5
[2022-11-08 16:10] VITALS: BP 150/63
[2022-11-08 17:34] LABS: BASOPHILS # (AUTO) 0.1 K/uL (0.00-0.22); EOSINOPHILS # (AUTO) 0.1 K/uL (0-0.4); EOSINOPHILS % (AUTO) 1.8 % (0.0-4.0); HEMATOCRIT 38.6 % (36-52); HEMOGLOBIN 12.9 g/dL (12.0-18.0); LYMPHOCYTES # (AUTO) 1.6 K/uL (2.0-11.5); LYMPHOCYTES % (AUTO) 31.3 % (20.5-51.1); MEAN CORPUSCULAR HEMOGLOBIN 28 pg (27-31); MEAN CORPUSCULAR HGB CONC 33 g/dL (33-37); MEAN CORPUSCULAR VOLUME 83.4 fL (80-94); MONOCYTES # (AUTO) 0.5 K/uL (0.8-1.0); MONOCYTES % (AUTO) 9.6 % (1.7-9.3); NEUTROPHILS # (AUTO) 2.9 K/uL (1.8-7.7); NEUTROPHILS % (AUTO) 56.3 % (42.2-75.2); PLATELET COUNT (AUTO) 309 K/uL (140-450); RED BLOOD CELL COUNT(AUTO) 4.63 MIL/uL (4.20-6.10); RED CELL DISTRIBUTION WIDTH 15.2 % (11.6-13.7); WHITE BLOOD COUNT (AUTO) 5.2 K/uL (4.8-10.8)
[2022-11-08 17:46] LABS: ACETONE, SERUM NEGATIVE (NEGATIVE)
[2022-11-08 17:59] LABS: ALBUMIN 4.2 g/dL (3.4-5.0); ASPARTATE AMINOTRANSFERASE 22 U/L (15-37); CARBON DIOXIDE 29.2 mmol/L (21-32); CHLORIDE 103 mmol/L (98-107); CREATININE 0.8 mg/dL (0.6-1.3); GFR ARICAN-AMERICAN 123 mL/min (>90); GLUCOSE 71 mg/dL (74-106); LIPASE 168 U/L (73-393); POTASSIUM 4.2 mmol/L (3.5-5.1); SODIUM SERUM 139 mmol/L (136-145); TOTAL BILIRUBIN 0.4 mg/dL (0.0-1.0); UREA NITROGEN, BLOOD 15 mg/dL (7-18)
[2022-11-08 18:03] LABS: ACETAMINOPHEN < 0.5 ug/ml (10-30); SALICYLATE < 2.8 mg/dL (2.8-20.0)
[2022-11-08] MEDS ORDERED: ACET-2619 PO (18:24)
--- NOTE | 2022-11-08 19:21 | NUR ---
report given to CARMEN Bailey for continuity of care.
== END 2022-11-08 19:30 ==
LOC: MED 15:46
DX: S09.90XA Unspecified injury of head, initial encounter (principal); H05.222 Edema of left orbit; I10 Essential (primary) hypertension; Z79.899 Other long term (current) drug therapy; W18.30XA Fall on same level, unspecified, initial encounter; Y93.89 Activity, other specified; Y92.89 Other specified places as the place of occurrence of the external cause; Y99.8 Other external cause status
CPT/HCPCS: 36415; 70450; 80053; 82009; 82140; 83690; 85025; 93005; 99285; G0480

== ENCOUNTER 2022-12-02 23:32 | Emergency (ER) | payer OTHER ==
[~2022-12-02] VITALS: Ht 185.4 cm; Wt 108.9 kg
[2022-12-02 23:32] VITALS: BP 145/83
[~2022-12-02 23:32] MED LIST changes: +ACET-2619 PO
--- NOTE | 2022-12-03 | NUR ---
biba to bed #3
--- NOTE | 2022-12-03 00:29 | NUR ---
PT IS HERE BEAUSE THE ABDORMAL LABS INCLUDING LOW HEMOGOBLIN AND HE CLAIMED TO HAVE PAIN 06/05 ON THE LEFT HIP. HE IS AWAKE AND AND ORIENTED X 4. ROOM AIR.
[2022-12-03 00:34] LABS: BASOPHILS % (AUTO) 0.7 % (0.0-2.0); EOSINOPHILS # (AUTO) 0.1 K/uL (0-0.4); EOSINOPHILS % (AUTO) 1.2 % (0.0-4.0); HEMATOCRIT 36.2 % (36-52); LYMPHOCYTES # (AUTO) 1.8 K/uL (2.0-11.5); LYMPHOCYTES % (AUTO) 30.1 % (20.5-51.1); MEAN CORPUSCULAR HEMOGLOBIN 28 pg (27-31); MEAN CORPUSCULAR HGB CONC 33 g/dL (33-37); MEAN CORPUSCULAR VOLUME 84.9 fL (80-94); MONOCYTES # (AUTO) 0.6 K/uL (0.8-1.0); MONOCYTES % (AUTO) 10.4 % (1.7-9.3); NEUTROPHILS # (AUTO) 3.4 K/uL (1.8-7.7); NEUTROPHILS % (AUTO) 57.6 % (42.2-75.2); PLATELET COUNT (AUTO) 286 K/uL (140-450); RED BLOOD CELL COUNT(AUTO) 4.27 MIL/uL (4.20-6.10); RED CELL DISTRIBUTION WIDTH 15.8 % (11.6-13.7)
[2022-12-03 00:57] LABS: PROTHROMBIN TIME 10.1 secs (10.8-13.4)
[2022-12-03 01:05] LABS: ALBUMIN 4.1 g/dL (3.4-5.0); ANION GAP 9.7 (8-16); ASPARTATE AMINOTRANSFERASE 8 U/L (15-37); CARBON DIOXIDE 32.4 mmol/L (21-32); CHLORIDE 103 mmol/L (98-107); CREATININE 0.8 mg/dL (0.6-1.3); GFR ARICAN-AMERICAN 123 mL/min (>90); GLUCOSE 82 mg/dL (74-106); POTASSIUM 4.1 mmol/L (3.5-5.1); SODIUM SERUM 141 mmol/L (136-145); TOTAL BILIRUBIN 0.5 mg/dL (0.0-1.0); UREA NITROGEN, BLOOD 13 mg/dL (7-18)
[2022-12-03] MEDS ORDERED: DOCU1TAB73 PO (01:26)
--- NOTE | 2022-12-03 02:53 | NUR ---
called [facility] s/w [place] to notify that pt is en route back to their facility. copy of results with pt.
[2022-12-03 02:59] VITALS: BP 145/83
--- NOTE | 2022-12-03 03:02 | NUR ---
Patient discharged with v/s stable. Written and verbal after care instructions given and explained. Patient verbalized understanding. Ambulance Transport with to retirement. All questions addressed prior to discharge. Advised to follow up with PMD. PT LEFT WITH HIS BELONGINGS
== END 2022-12-03 | disposition home or self-care (01) ==
LOC: MED 23:32
DX: K59.00 Constipation, unspecified (principal); R79.9 Abnormal finding of blood chemistry, unspecified; D64.9 Anemia, unspecified; I10 Essential (primary) hypertension; Z79.899 Other long term (current) drug therapy
CPT/HCPCS: 36415; 80053; 84484; 85025; 85610; 85730; 86886; 86900; 86901; 99283

== ENCOUNTER 2022-12-04 09:07 | Emergency (ER) | payer OTHER ==
[~2022-12-04] VITALS: Ht 172.7 cm; Wt 99.8 kg
[~2022-12-04 09:07] MED LIST changes: +DOCU1TAB73 PO
--- NOTE | 2022-12-04 09:07 | NUR ---
PT PLACED IN BED 02 AT THIS TIME BY [facility]
[2022-12-04 09:13] VITALS: BP 163/83
[2022-12-04 09:18] VITALS: BP 142/80
--- NOTE | 2022-12-04 09:35 | NUR ---
ASSUMED PATIENT CARE. TRIAGE COMPLETED, NURSING ASSESSMENT COMPLETED. DR FAITH AT BEDSIDE, MSE COMPLETED.
--- NOTE | 2022-12-04 10:00 | NUR ---
TO RADIOLOGY VIA [facility].
[2022-12-04 10:02] LABS: BASOPHILS % (AUTO) 0.5 % (0.0-2.0); EOSINOPHILS # (AUTO) 0.1 K/uL (0-0.4); EOSINOPHILS % (AUTO) 1.2 % (0.0-4.0); HEMATOCRIT 38.3 % (36-52); HEMOGLOBIN 12.5 g/dL (12.0-18.0); LYMPHOCYTES # (AUTO) 1.4 K/uL (2.0-11.5); LYMPHOCYTES % (AUTO) 27.5 % (20.5-51.1); MEAN CORPUSCULAR HEMOGLOBIN 28 pg (27-31); MEAN CORPUSCULAR HGB CONC 33 g/dL (33-37); MEAN CORPUSCULAR VOLUME 85.3 fL (80-94); MONOCYTES # (AUTO) 0.5 K/uL (0.8-1.0); MONOCYTES % (AUTO) 10.9 % (1.7-9.3); NEUTROPHILS # (AUTO) 2.9 K/uL (1.8-7.7); NEUTROPHILS % (AUTO) 59.9 % (42.2-75.2); PLATELET COUNT (AUTO) 292 K/uL (140-450); RED BLOOD CELL COUNT(AUTO) 4.49 MIL/uL (4.20-6.10); RED CELL DISTRIBUTION WIDTH 15.6 % (11.6-13.7); WHITE BLOOD COUNT (AUTO) 4.9 K/uL (4.8-10.8)
[2022-12-04 10:17] LABS: ALBUMIN 4.1 g/dL (3.4-5.0); ANION GAP 9.6 (8-16); CARBON DIOXIDE 32.4 mmol/L (21-32); TOTAL BILIRUBIN 0.4 mg/dL (0.0-1.0)
--- NOTE | 2022-12-04 10:37 | NUR ---
BACK FROM RADIOLOGY.
--- NOTE | 2022-12-04 11:45 | NUR ---
DISPO AND MEDICAL DECISION MAKING, DC BACK TO [facility]. PATIENT UPDATED BY MD OF DISPOSITION.
--- NOTE | 2022-12-04 13:44 | NUR ---
MEDICAL TRANSPORTATION BEING ARRANGED BY [facility], AWAITING RETURN CALL.
--- NOTE | 2022-12-04 15:01 | NUR ---
DISCHARGED WITH MEDICAL TRANSPORT, REPORT GIVEN TO CAROLINE. PATIENT STABLE, DENIES PAIN, NO DISTRESS. DC HOME VIA [facility].
[2022-12-04 15:02] VITALS: BP 130/72
== END 2022-12-04 15:02 | disposition home or self-care (01) ==
LOC: MED 09:07
DX: S09.90XA Unspecified injury of head, initial encounter (principal); F03.90 Unspecified dementia, unspecified severity, without behavioral disturbance, psychotic disturbance, mood disturbance, and anxiety; I10 Essential (primary) hypertension; F17.200 Nicotine dependence, unspecified, uncomplicated; Z79.899 Other long term (current) drug therapy; Z72.89 Other problems related to lifestyle; W22.8XXA Striking against or struck by other objects, initial encounter; Y93.89 Activity, other specified; Y92.89 Other specified places as the place of occurrence of the external cause; Y99.8 Other external cause status
CPT/HCPCS: 36415; 70450; 72170; 80053; 84484; 85025; 99285

== ENCOUNTER 2023-01-02 13:05 | Emergency (ER) | payer OTHER ==
[~2023-01-02] VITALS: Ht 180.3 cm; Wt 68.0 kg
[2023-01-02 13:13] VITALS: BP 146/76
--- NOTE | 2023-01-02 13:19 | NUR ---
PT BIBA TO BED 8
--- NOTE | 2023-01-02 13:45 | NUR ---
67[facility] C/O HEAD INJURY -LOC-BLOODTHINNERS. PER [facility], FACILITY REPORTS PT FELL FORWARD WHILE IN WHEELCHAIR. PT STATES HEAD PAIN W/ RADIATION TO L SHOULDER. PAIN AT MOST ON MOVEMENT. ABRASION NOTED IN L EAR. NO VISIBLE DEFORIMITES. PT W LIMITED ROM DUE TO PAIN. DENIES CHEST PAIN, SOB, N/V/D. PT AAOX2 AT BASELINE. ON COST RECORDER BED AT LOWEST POSITION, BED RAILS UPX2 HX: DIMENTIA, ANEMIA, ENCEPHALOPATHY, BLIND NKA
[2023-01-02] MEDS ORDERED: ACETAMINOPHEN EXTRA STRENGTH 500 MG TAB PO ONE (14:20)
--- NOTE | 2023-01-02 14:51 | NUR ---
PT RETURN FROM CT
[2023-01-02] MEDS ORDERED: ACET-10509 PO (15:38)
--- NOTE | 2023-01-02 17:15 | NUR ---
REPORT GIVEN TO EDUIN MARTE AT [facility]. UPDATED ON PT STATUS AND MADE AWARE OF TRANSPORT ETA.
[2023-01-02 17:18] VITALS: BP 130/75
--- NOTE | 2023-01-02 17:41 | NUR ---
[facility] AT BEDSIDE
--- NOTE | 2023-01-02 17:45 | NUR ---
Patient discharged with v/s stable. Written and verbal after care instructions FOR HEAD INJURY given and explained. [facility] Transport with to [facility]. All questions addressed prior to discharge. ID band removed. Patient advised to follow up with PMD. Rx of TYLENOL XTRA STREGNTH given. Opportunity to ask questions provided and answered.
--- NOTE | 2023-01-02 17:45 | NUR ---
The patient's care was reviewed and supervised by Eduard Ledesma RN.
--- NOTE | 2023-01-02 17:45 | NUR ---
The patient's care was reviewed and supervised by Eduard Ledesma RN.
== END 2023-01-02 17:45 | disposition home or self-care (01) ==
LOC: MED 13:05
DX: S09.90XA Unspecified injury of head, initial encounter (principal); R11.0 Nausea; I10 Essential (primary) hypertension; F03.90 Unspecified dementia, unspecified severity, without behavioral disturbance, psychotic disturbance, mood disturbance, and anxiety; D64.9 Anemia, unspecified; F17.200 Nicotine dependence, unspecified, uncomplicated; Z79.899 Other long term (current) drug therapy; Z98.890 Other specified postprocedural states; W22.03XA Walked into furniture, initial encounter; Y93.89 Activity, other specified; Y92.89 Other specified places as the place of occurrence of the external cause; Y99.8 Other external cause status
CPT/HCPCS: 70450; 72125; 99284

== ENCOUNTER 2024-03-26 13:10 | Emergency (ER) | payer OTHER ==
[~2024-03-26] VITALS: Ht 177.8 cm; Wt 90.7 kg
[~2024-03-26 13:10] MED LIST changes: +ACET-10509 PO; -DOCU1TAB73 PO; +SENN1TAB80 PO
[2024-03-26 13:39] VITALS: BP 160/68; PULSE 81; RESP 20; TEMP 98.3; O2SAT 97
[2024-03-26 15:06] LABS: APPEARANCE,URINE CLOUDY (CLEAR); BILIRUBIN,URINE NEGATIVE (NEGATIVE); BLOOD, URINE 3+ (NEGATIVE); COLOR,URINE BROWN (YELLOW); LEUKOCYTE ESTERASE ,URINE 2+ (NEGATIVE); NITRITE, URINE POSITIVE (NEGATIVE); PROTEIN,URINE 2+ (NEGATIVE); UGLUCOSE NEGATIVE (NEGATIVE); UROBILINOGEN,URINE 0.2 EU/dL (0.2 - 1)
[2024-03-26 15:12] LABS: AMPHETAMINE, URINE NEGATIVE ng/ml (NEG <=1000); BARBITURATE, URINE NEGATIVE ng/ml (NEG <=200); BENZODIAZEPINE, URINE NEGATIVE ng/mL (NEG <=200); CANNABINOID, URINE NEGATIVE ng/mL (NEG <=50); COCAINE, URINE NEGATIVE ng/mL (NEG <=300); OPIATE, URINE NEGATIVE ng/mL (NEG <=2000); PHENCYCLIDINE SCREEN,URINE NEGATIVE ng/mL (NEG <=25)
[2024-03-26 15:37] LABS: RBC,URINE 11-20 (MOD) /HPF (0-5)
[2024-03-26 15:38] LABS: BACTERIA,URINE 10-30 (MOD) /HPF (None Seen)
[2024-03-26 15:41] LABS: SQUAMOUS EPITHELIAL CELL,UR 0-3 (FEW) /LPF (0-3 (FEW))
[2024-03-26 16:14] LABS: BASOPHILS % (AUTO) 0.4 % (0.0-2.0); EOSINOPHILS # (AUTO) 0.1 K/uL (0-0.4); EOSINOPHILS % (AUTO) 1.7 % (0.0-4.0); HEMATOCRIT 40.2 % (36-52); HEMOGLOBIN 13.7 g/dL (12.0-18.0); LYMPHOCYTES # (AUTO) 1.3 K/uL (2.0-11.5); LYMPHOCYTES % (AUTO) 28.7 % (20.5-51.1); MEAN CORPUSCULAR HEMOGLOBIN 29 pg (27-31); MEAN CORPUSCULAR HGB CONC 34 g/dL (33-37); MEAN CORPUSCULAR VOLUME 85.9 fL (80-94); MONOCYTES # (AUTO) 0.5 K/uL (0.8-1.0); MONOCYTES % (AUTO) 10.6 % (1.7-9.3); NEUTROPHILS # (AUTO) 2.6 K/uL (1.8-7.7); NEUTROPHILS % (AUTO) 58.6 % (42.2-75.2); PLATELET COUNT (AUTO) 217 K/uL (140-450); RED BLOOD CELL COUNT(AUTO) 4.68 MIL/uL (4.20-6.10); RED CELL DISTRIBUTION WIDTH 14.3 % (11.6-13.7); WHITE BLOOD COUNT (AUTO) 4.4 K/uL (4.8-10.8)
[2024-03-26 16:23] LABS: ANION GAP 6.5 (8-16); CALCIUM 9.1 mg/dL (8.5-10.1); CARBON DIOXIDE 32.7 mmol/L (21-32); CREATININE 0.9 mg/dL (0.6-1.3); POTASSIUM 4.2 mmol/L (3.5-5.1)
[2024-03-26 16:39] LABS: ALANINE AMINOTRANSFERASE 28 U/L (12-78); ALBUMIN 3.4 g/dL (3.4-5.0); ALCOHOL, BLOOD < 3 mg/dL (<10); ALKALINE PHOSPHATASE 110 U/L (50-136); ASPARTATE AMINOTRANSFERASE 20 U/L (15-37); BILIRUBIN,DIRECT 0.1 mg/dL (0.0-0.3); THYROID STIMULATING HORMONE 2.36 uIU/mL (0.34-3.74); TOTAL BILIRUBIN 0.3 mg/dL (0.0-1.0); TOTAL PROTEIN, SERUM 7.1 g/dL (6.4-8.2)
[2024-03-26] MEDS ORDERED: CEPH-588 PO (17:14)
[2024-03-26 18:40] VITALS: TEMP 97.7
[2024-03-26 21:58] VITALS: BP 145/76; PULSE 69; RESP 18; O2SAT 98
== END 2024-03-26 21:59 | disposition home or self-care (01) ==
LOC: MED 13:10
DX: F03.92 Unspecified dementia, unspecified severity, with psychotic disturbance (principal); N39.0 Urinary tract infection, site not specified; I10 Essential (primary) hypertension; R41.82 Altered mental status, unspecified; Z79.1 Long term (current) use of non-steroidal anti-inflammatories (NSAID); Z79.899 Other long term (current) drug therapy
CPT/HCPCS: 36415; 70450; 71045; 80048; 80076; 80305; 81001; 84443; 84484; 85025; 87086; 87186; 93005; 99285; G0482

== ENCOUNTER 2024-07-09 11:56 | Inpatient (IN) | payer OTHER ==
[~2024-07-09] VITALS: Ht 182.9 cm; Wt 99.5 kg
[~2024-07-09 11:56] MED LIST changes: -ACET-10509 PO; +ACET500T99 PO; +CEPH-588 PO
[2024-07-09 12:05] VITALS: BP 136/80; PULSE 78; RESP 20; TEMP 97.1; O2SAT 96
[2024-07-09] MEDS ORDERED: cefTRIAXone 1,000 MG VIAL ONE (12:06)
[2024-07-09] MEDS: DEXTROSE 50% 50 ML SYR IVP ONE ×3 (12:13→22:46)
[2024-07-09] MEDS: cefTRIAXone 1,000 MG in DEXT 5% MINI-BAG PLUS 50 ML IV ONE (12:31)
[2024-07-09 13:04] LABS: BASOPHILS % (AUTO) 0.3 % (0.0-2.0); EOSINOPHILS % (AUTO) 0.7 % (0.0-4.0); HEMOGLOBIN 12.7 g/dL (12.0-18.0); LYMPHOCYTES # (AUTO) 0.7 K/uL (2.0-11.5); LYMPHOCYTES % (AUTO) 18.8 % (20.5-51.1); MEAN CORPUSCULAR HEMOGLOBIN 28 pg (27-31); MEAN CORPUSCULAR HGB CONC 33 g/dL (33-37); MEAN CORPUSCULAR VOLUME 86.5 fL (80-94); MONOCYTES # (AUTO) 0.2 K/uL (0.8-1.0); MONOCYTES % (AUTO) 7.1 % (1.7-9.3); NEUTROPHILS # (AUTO) 2.5 K/uL (1.8-7.7); NEUTROPHILS % (AUTO) 73.1 % (42.2-75.2); PLATELET COUNT (AUTO) 130 K/uL (140-450); RED BLOOD CELL COUNT(AUTO) 4.51 MIL/uL (4.20-6.10); RED CELL DISTRIBUTION WIDTH 17.1 % (11.6-13.7); WHITE BLOOD COUNT (AUTO) 3.5 K/uL (4.8-10.8)
[2024-07-09 13:12] LABS: ANION GAP 7.7 (8-16); CALCIUM 9.2 mg/dL (8.5-10.1); CARBON DIOXIDE 32.7 mmol/L (21-32); CREATININE 0.9 mg/dL (0.6-1.3); POTASSIUM 4.4 mmol/L (3.5-5.1)
[2024-07-09 13:21] LABS: LACTIC ACID 0.5 mmol/L (0.4-2.0)
[2024-07-09 15:56] LABS: APPEARANCE,URINE SL CLOUDY (CLEAR); BILIRUBIN,URINE 3+ (NEGATIVE); BLOOD, URINE 3+ (NEGATIVE); COLOR,URINE RED (YELLOW); LEUKOCYTE ESTERASE ,URINE 2+ (NEGATIVE); NITRITE, URINE POSITIVE (NEGATIVE); PROTEIN,URINE 3+ (NEGATIVE); UGLUCOSE 1+ (NEGATIVE)
[2024-07-09 16:03] LABS: ICTOTEST NEGATIVE (NEGATIVE)
[2024-07-09 16:04] LABS: BACTERIA,URINE 2+ /HPF (None Seen); MUCUS,URINE None Seen /LPF (None Seen); RBC,URINE 50-80 /HPF (0-5); SQUAMOUS EPITHELIAL CELL,UR 0-3 (FEW) /LPF (0-3 (FEW))
[2024-07-09] MEDS ORDERED: AMLO10TA88 PO (16:06)
[2024-07-09] MEDS ORDERED: [UNRECOGNIZED DRUG - CODE] PO (16:06)
[2024-07-09] MEDS ORDERED: OLAN5TAB65 PO (16:06)
[2024-07-09] MEDS ORDERED: CEPH250C16 PO (16:06)
[2024-07-09] MEDS ORDERED: TAMS0.4C97 PO (16:06)
[2024-07-09] MEDS ORDERED: DIVA125E11 PO (16:06)
[2024-07-09] MEDS ORDERED: FINA5TAB5 PO (16:06)
[2024-07-09] MEDS ORDERED: DEXTROSE 50% 50 ML SYR IVP ONE (17:29)
[2024-07-09] MEDS ORDERED: WATER STERILE 10 ML MC ONE (17:49)
[2024-07-09] MEDS: OLANZapine 10 MG VIAL IM ONE (17:53)
[2024-07-09] MEDS ORDERED: ZOLPIDEM 5 MG TAB PO PRN (18:45)
[2024-07-09] MEDS ORDERED: POTASSIUM CHLORIDE 10 MEQ TABER PO PRN (18:45)
[2024-07-09] MEDS ORDERED: ACETAMINOPHEN 325 MG TAB PO PRN (18:45)
[2024-07-09] MEDS ORDERED: guaiFENesin DM 200/20 MG-10 ML 10 ML UDC PO PRN (18:45)
[2024-07-09] MEDS ORDERED: ONDANSETRON 4 MG/2 ML VIAL IM/IVP PRN (18:45)
[2024-07-09] MEDS ORDERED: HYDROcodone/APAP 7.5/325 MG 1 TAB PO PRN (18:45)
[2024-07-09] MEDS ORDERED: hydrALAZINE 10 MG TAB PO SCH (18:55)
[2024-07-09 19:54] LABS: INR 0.99 (0.8-1.2); PROTHROMBIN TIME 10.4 secs (10.8-13.4)
[2024-07-09 20:05] LABS: CHOL/HDL RATIO 1.8 (1-4.5); FREE T4 (FREE THYROXINE) 0.83 ng/dL (0.76-1.46); MAGNESIUM 1.7 mg/dL (1.8-2.4); PHOSPHORUS 2.2 mg/dL (2.5-4.9); THYROID STIMULATING HORMONE 3.5 uIU/mL (0.34-3.74)
[2024-07-09 20:35] VITALS: O2SAT 99
[2024-07-09] MEDS: BLOOD GLUCOSE MONITORING 1 DEV DEV FS SCH (20:56)
[2024-07-09] MEDS: OLANZapine 5 MG TAB PO SCH (21:00)
[2024-07-09] MEDS: ARIPiprazole 10 MG TAB PO SCH (21:00)
[2024-07-09] MEDS: NACL 0.9% 1,000 ML IV SCH (21:36)
[2024-07-09] MEDS: DEXT 5% / NACL 0.9% 500 ML IV SCH (22:45)
[2024-07-10 00:23] VITALS: O2SAT 100
[2024-07-10 02:42] VITALS: O2SAT 98
[2024-07-10] MEDS: LORazepam 2 MG/ML VIAL IM/IVP PRN ×2 (04:56→22:17)
[2024-07-10] MEDS: DEXT 5% / NACL 0.9% 1,000 ML IV SCH (05:48)
[2024-07-10 08:14] LABS: T4 (THYROXINE) 6.1 ug/dL (4.5-12.0)
[2024-07-10 08:50] LABS: BASOPHILS % (AUTO) 0.2 % (0.0-2.0); EOSINOPHILS % (AUTO) 0.3 % (0.0-4.0); HEMATOCRIT 37.8 % (36-52); HEMOGLOBIN 12.6 g/dL (12.0-18.0); LYMPHOCYTES # (AUTO) 0.6 K/uL (2.0-11.5); LYMPHOCYTES % (AUTO) 15.7 % (20.5-51.1); MEAN CORPUSCULAR HEMOGLOBIN 29 pg (27-31); MEAN CORPUSCULAR HGB CONC 33 g/dL (33-37); MEAN CORPUSCULAR VOLUME 86.4 fL (80-94); MONOCYTES # (AUTO) 0.3 K/uL (0.8-1.0); MONOCYTES % (AUTO) 7.4 % (1.7-9.3); NEUTROPHILS % (AUTO) 76.4 % (42.2-75.2); PLATELET COUNT (AUTO) 103 K/uL (140-450); RED BLOOD CELL COUNT(AUTO) 4.38 MIL/uL (4.20-6.10); RED CELL DISTRIBUTION WIDTH 16.7 % (11.6-13.7); WHITE BLOOD COUNT (AUTO) 3.9 K/uL (4.8-10.8)
[2024-07-10 08:58] LABS: CALCIUM 8.9 mg/dL (8.5-10.1); CARBON DIOXIDE 34.4 mmol/L (21-32); CREATININE 0.8 mg/dL (0.6-1.3); POTASSIUM 4.4 mmol/L (3.5-5.1)
[2024-07-10 09:00] VITALS: PULSE 57; RESP 18; O2SAT 99
[2024-07-10] MEDS ORDERED: NON-FORMULARY ITEM (Amlodipine Besylate 1 TAB) PO SCH (09:00)
[2024-07-10] MEDS: amLODIPine 5 MG TAB PO SCH (09:00)
[2024-07-10] MEDS: PANTOPRAZOLE 40 MG TABEC PO SCH (09:00)
[2024-07-10] MEDS: DIVALPROEX SPRINKLES 125 MG CAPDR PO SCH (09:00)
[2024-07-10 12:00] VITALS: BP 128/76; PULSE 45; PULSE 46; RESP 16; TEMP 96.8; O2SAT 95
[2024-07-10] MEDS: MAG SULF 2000 MG/WATER PREMIX 50 ML IV SCH (12:14)
[2024-07-10 16:00] VITALS: BP 157/76; PULSE 61; RESP 16; TEMP 97.2; O2SAT 100
[2024-07-10 20:00] VITALS: BP 138/80; PULSE 63; PULSE 65; PULSE 71; RESP 20; TEMP 98.2; O2SAT 100; O2SAT 97
[2024-07-11] VITALS (27 sets, daily range): BP systolic 58–142; BP diastolic 42–89; PULSE 45–117; RESP 15–20; TEMP 87.4–98; O2SAT 96–100
[2024-07-11] MEDS: CLINDAMYCIN 600 MG/4 ML VIAL ONE (05:04)
[2024-07-11] MEDS: CLINDAMYCIN 600 MG in DEXTROSE 5% 50 ML IV SCH (05:07)
[2024-07-11 05:11] LABS: BASOPHILS % (AUTO) 0.1 % (0.0-2.0); EOSINOPHILS % (AUTO) 0.3 % (0.0-4.0); HEMATOCRIT 36.6 % (36-52); HEMOGLOBIN 12.2 g/dL (12.0-18.0); LYMPHOCYTES # (AUTO) 0.4 K/uL (2.0-11.5); LYMPHOCYTES % (AUTO) 12.2 % (20.5-51.1); MEAN CORPUSCULAR HEMOGLOBIN 29 pg (27-31); MEAN CORPUSCULAR HGB CONC 33 g/dL (33-37); MEAN CORPUSCULAR VOLUME 85.9 fL (80-94); MONOCYTES # (AUTO) 0.2 K/uL (0.8-1.0); MONOCYTES % (AUTO) 6.3 % (1.7-9.3); NEUTROPHILS # (AUTO) 2.9 K/uL (1.8-7.7); NEUTROPHILS % (AUTO) 81.1 % (42.2-75.2); PLATELET COUNT (AUTO) 94 K/uL (140-450); RED BLOOD CELL COUNT(AUTO) 4.26 MIL/uL (4.20-6.10); RED CELL DISTRIBUTION WIDTH 16.8 % (11.6-13.7); WHITE BLOOD COUNT (AUTO) 3.6 K/uL (4.8-10.8)
[2024-07-11 05:24] LABS: ANION GAP 6.3 (8-16); CALCIUM 8.2 mg/dL (8.5-10.1); CARBON DIOXIDE 30.6 mmol/L (21-32); CREATININE 0.7 mg/dL (0.6-1.3); POTASSIUM 3.9 mmol/L (3.5-5.1)
[2024-07-11] MEDS ORDERED: NOREPINEPHRINE 8 MG in DEXTROSE 5% 250 ML IV PRN (10:30)
[2024-07-11] MEDS: NOREPINEPHRINE 4 MG in DEXTROSE 5% 250 ML IV PRN (11:32)
[2024-07-11] MEDS: DEXT 5% /NACL 0.9% 1,000 ML IV SCH (11:58)
[2024-07-11] MEDS: CLINDAMYCIN 600MG/D5W PM 50 ML IV SCH (12:12)
[2024-07-11] MEDS: INSULIN LISPRO SLIDING SCALE 100 UNITS/ML VIAL SUBQ PRN (12:33)
[2024-07-11] MEDS: NOREPINEPHRINE 8 MG in DEXTROSE 5% 250 ML IV PRN (13:59)
[2024-07-11] MEDS ORDERED: ROCURONIUM 50 MG/5 ML VIAL IV ONE (17:45)
[2024-07-11] MEDS: PROPOFOL 200 MG/20 ML VIAL IV ONE (17:45)
[2024-07-11] MEDS ORDERED: PROPOFOL 200 MG/20 ML VIAL IV ONE (17:50)
[2024-07-11] MEDS ORDERED: VANCOMYCIN PER PHARMACY MC PRN (18:05)
[2024-07-11] MEDS ORDERED: VANCOMYCIN 1GM/DEXT 5% PREMIX 200 ML IV SCH ×3 (18:45→21:00)
[2024-07-11] MEDS: PROPOFOL 1000 MG/100 ML PREMIX 100 ML IV ONE (18:46)
[2024-07-11] MEDS: MIDAZOLAM MDV 50 MG in NACL 0.9% 40 ML IV PRN (18:48)
[2024-07-11] MEDS: fentaNYL citrate 0.05 MG/ML VIAL ONE (18:50)
[2024-07-11] MEDS: MIDAZOLAM MDV 50 MG/10 ML VIAL IV ONE (18:50)
[2024-07-11] MEDS: fentaNYL citrate 1 MG in NACL 0.9% 80 ML IV PRN (18:51)
[2024-07-11] MEDS: ROCURONIUM 50 MG/5 ML VIAL IV ONE (19:08)
[2024-07-11 19:40] LABS: BLOOD GAS PH 7.377 (7.350-7.450)
[2024-07-11 19:41] LABS: BLOOD GAS HCO3 20.6 mmol/L (21.0-28.0); BLOOD GAS O2 SAT% 99.9 % (94.0-98.0); BLOOD GAS PCO2 35.8 mmHg (35.0-48.0); BLOOD GAS PO2 408.4 mmHg (83.0-108.0)
[2024-07-11] MEDS: ALBUTEROL SULFATE/IPRATROPIU 3 ML SOL IH SCH (20:03)
[2024-07-11] MEDS: PIPERACILLIN/TAZOBACTAM 3.375 GM VIAL IV ONE (23:39)
[2024-07-11] MEDS: PIPERACILLIN/TAZOBACTAM 3.375 GM in DEXTROSE 5% 50 ML IV SCH (23:41)
[2024-07-11] MEDS: BLOOD GLUCOSE MONITORING 1 DEV DEV FS SCH (23:55)
[2024-07-12] VITALS (34 sets, daily range): BP systolic 96–155; BP diastolic 29–86; PULSE 55–95; RESP 11–21; TEMP 94.5–97.7; O2SAT 98–100
[2024-07-12 05:23] LABS: BASOPHILS % (AUTO) 0.2 % (0.0-2.0); EOSINOPHILS % (AUTO) 0.1 % (0.0-4.0); HEMATOCRIT 32.2 % (36-52); HEMOGLOBIN 10.8 g/dL (12.0-18.0); LYMPHOCYTES # (AUTO) 0.7 K/uL (2.0-11.5); MEAN CORPUSCULAR HEMOGLOBIN 29 pg (27-31); MEAN CORPUSCULAR HGB CONC 33 g/dL (33-37); MONOCYTES # (AUTO) 0.5 K/uL (0.8-1.0); MONOCYTES % (AUTO) 10.2 % (1.7-9.3); NEUTROPHILS # (AUTO) 3.6 K/uL (1.8-7.7); NEUTROPHILS % (AUTO) 75.5 % (42.2-75.2); PLATELET COUNT (AUTO) 111 K/uL (140-450); RED BLOOD CELL COUNT(AUTO) 3.75 MIL/uL (4.20-6.10); RED CELL DISTRIBUTION WIDTH 17.1 % (11.6-13.7); WHITE BLOOD COUNT (AUTO) 4.8 K/uL (4.8-10.8)
[2024-07-12 05:46] LABS: ANION GAP 10.7 (8-16); CALCIUM 6.9 mg/dL (8.5-10.1); CARBON DIOXIDE 23.8 mmol/L (21-32); CREATININE 1.1 mg/dL (0.6-1.3); POTASSIUM 3.5 mmol/L (3.5-5.1)
[2024-07-12] MEDS ORDERED: BLOOD GLUCOSE MONITORING 1 DEV DEV FS SCH (06:30)
[2024-07-12] MEDS: PIPERACILLIN/TAZOBACTAM 3.375 GM VIAL IV ONE (06:39)
[2024-07-12] MEDS: VANCOMYCIN HCL 750 MG in DEXTROSE 5% 250 ML IV SCH (09:06)
[2024-07-12] MEDS: LORazepam 2 MG/ML VIAL IVP PRN (14:06)
[2024-07-12] MEDS: DOCUSATE SODIUM 100 MG GELCAP PO PRN (21:33)
[2024-07-13] VITALS (33 sets, daily range): BP systolic 90–152; BP diastolic 54–97; PULSE 12–102; RESP 5–24; TEMP 35.5; O2SAT 98–100
[2024-07-13 07:34] LABS: BASOPHILS % (AUTO) 0.2 % (0.0-2.0); EOSINOPHILS % (AUTO) 1.3 % (0.0-4.0); HEMATOCRIT 30.1 % (36-52); HEMOGLOBIN 10.1 g/dL (12.0-18.0); LYMPHOCYTES # (AUTO) 0.7 K/uL (2.0-11.5); LYMPHOCYTES % (AUTO) 23.5 % (20.5-51.1); MEAN CORPUSCULAR HEMOGLOBIN 29 pg (27-31); MEAN CORPUSCULAR HGB CONC 33 g/dL (33-37); MEAN CORPUSCULAR VOLUME 85.9 fL (80-94); MONOCYTES # (AUTO) 0.4 K/uL (0.8-1.0); PLATELET COUNT (AUTO) 71 K/uL (140-450); RED BLOOD CELL COUNT(AUTO) 3.51 MIL/uL (4.20-6.10); WHITE BLOOD COUNT (AUTO) 3.1 K/uL (4.8-10.8)
[2024-07-13] MEDS: ENOXAPARIN 40 MG/0.4 ML SYR SUBQ SCH (09:37)
[2024-07-13] MEDS: PANTOPRAZOLE 40 MG INJ VIAL IVP SCH (10:04)
[2024-07-13 10:30] LABS: ANION GAP 13.9 (8-16); CALCIUM 7.5 mg/dL (8.5-10.1)
[2024-07-13 10:31] LABS: POTASSIUM 2.9 mmol/L (3.5-5.1)
[2024-07-13] MEDS: KCL 20 MEQ IN 100 mL PREMIX 200 ML IV SCH (11:02)
[2024-07-13] MEDS ORDERED: CLINICAL MONITORING MC PRN (12:45)
[2024-07-13] MEDS: NACL 0.45% 1,000 ML IV SCH (12:46)
[2024-07-13] MEDS: ACETYLCYSTEINE 20% (200 MG/ML) 200 MG/ML VIAL INH SCH (14:26)
[2024-07-13] MEDS: VANCOMYCIN 1,000 MG in DEXTROSE 5% 250 ML IV SCH (21:53)
[2024-07-14] VITALS (35 sets, daily range): BP systolic 104–161; BP diastolic 53–103; PULSE 91–111; RESP 17–21; TEMP 96–205; O2SAT 98–100
[2024-07-14 05:58] LABS: BASOPHILS % (AUTO) 0.2 % (0.0-2.0); EOSINOPHILS % (AUTO) 0.7 % (0.0-4.0); HEMOGLOBIN 10.2 g/dL (12.0-18.0); LYMPHOCYTES # (AUTO) 0.5 K/uL (2.0-11.5); LYMPHOCYTES % (AUTO) 15.5 % (20.5-51.1); MEAN CORPUSCULAR HEMOGLOBIN 29 pg (27-31); MEAN CORPUSCULAR HGB CONC 34 g/dL (33-37); MEAN CORPUSCULAR VOLUME 84.8 fL (80-94); MONOCYTES # (AUTO) 0.5 K/uL (0.8-1.0); MONOCYTES % (AUTO) 14.9 % (1.7-9.3); NEUTROPHILS # (AUTO) 2.3 K/uL (1.8-7.7); NEUTROPHILS % (AUTO) 68.7 % (42.2-75.2); PLATELET COUNT (AUTO) 75 K/uL (140-450); RED BLOOD CELL COUNT(AUTO) 3.54 MIL/uL (4.20-6.10); RED CELL DISTRIBUTION WIDTH 17.1 % (11.6-13.7); WHITE BLOOD COUNT (AUTO) 3.3 K/uL (4.8-10.8)
[2024-07-14] MEDS ORDERED: DEXMEDETOMIDINE HCL 400 MCG in NACL 0.9% 96 ML IV PRN (08:10)
[2024-07-14 08:15] LABS: ANION GAP 12.1 (8-16); CALCIUM 7.9 mg/dL (8.5-10.1); CARBON DIOXIDE 24.1 mmol/L (21-32); POTASSIUM 4.2 mmol/L (3.5-5.1)
[2024-07-14] MEDS: DOCUSATE 100 MG/10 ML UDC GT PRN (18:28)
[2024-07-15] VITALS (22 sets, daily range): BP systolic 95–156; BP diastolic 47–93; PULSE 84–105; RESP 16–24; TEMP 36.8; O2SAT 98–100
[2024-07-15 05:38] LABS: BASOPHILS % (AUTO) 0.2 % (0.0-2.0); EOSINOPHILS % (AUTO) 0.6 % (0.0-4.0); HEMATOCRIT 30.4 % (36-52); HEMOGLOBIN 10.3 g/dL (12.0-18.0); LYMPHOCYTES # (AUTO) 0.8 K/uL (2.0-11.5); LYMPHOCYTES % (AUTO) 25.2 % (20.5-51.1); MEAN CORPUSCULAR HEMOGLOBIN 29 pg (27-31); MEAN CORPUSCULAR HGB CONC 34 g/dL (33-37); MEAN CORPUSCULAR VOLUME 84.5 fL (80-94); MONOCYTES # (AUTO) 0.5 K/uL (0.8-1.0); NEUTROPHILS # (AUTO) 1.8 K/uL (1.8-7.7); PLATELET COUNT (AUTO) 87 K/uL (140-450); RED CELL DISTRIBUTION WIDTH 17.3 % (11.6-13.7); WHITE BLOOD COUNT (AUTO) 3.2 K/uL (4.8-10.8)
[2024-07-15 06:01] LABS: ANION GAP 9.2 (8-16); CALCIUM 8.3 mg/dL (8.5-10.1); CREATININE 1.2 mg/dL (0.6-1.3); POTASSIUM 4.2 mmol/L (3.5-5.1)
[2024-07-15 08:43] LABS: BLOOD GAS PCO2 39.9 mmHg (35.0-48.0)
[2024-07-15 08:44] LABS: BLOOD GAS BASE EXCESS -0.1 mmol/L (-2.0-3.0); BLOOD GAS HCO3 24.6 mmol/L (21.0-28.0); BLOOD GAS O2 SAT% 97.5 % (94.0-98.0); BLOOD GAS PO2 93.4 mmHg (83.0-108.0)
[2024-07-15] MEDS: FUROSEMIDE 20 MG/2 ML VIAL IVP SCH (08:58)
[2024-07-15] MEDS: POLYVINYL ALCOHOL 1.4% OP 15 ML SOL OP SCH (09:06)
[2024-07-15] MEDS: DEXTROSE 50% 50 ML SYR IVP PRN (17:14)
[2024-07-15] MEDS: DEXT 5% /NACL 0.9% 1,000 ML IV SCH (18:55)
[2024-07-15] MEDS: VANCOMYCIN HCL 750 MG in DEXTROSE 5% 250 ML IV SCH (21:13)
[2024-07-16] VITALS (22 sets, daily range): BP systolic 110–163; BP diastolic 63–100; PULSE 63–87; RESP 14–20; TEMP 96.7–207.9; O2SAT 95–100
[2024-07-16 05:30] LABS: BASOPHILS % (AUTO) 0.2 % (0.0-2.0); EOSINOPHILS % (AUTO) 0.7 % (0.0-4.0); HEMATOCRIT 31.2 % (36-52); HEMOGLOBIN 10.4 g/dL (12.0-18.0); LYMPHOCYTES # (AUTO) 0.7 K/uL (2.0-11.5); LYMPHOCYTES % (AUTO) 17.1 % (20.5-51.1); MEAN CORPUSCULAR HEMOGLOBIN 28 pg (27-31); MEAN CORPUSCULAR HGB CONC 33 g/dL (33-37); MONOCYTES # (AUTO) 0.6 K/uL (0.8-1.0); MONOCYTES % (AUTO) 14.4 % (1.7-9.3); NEUTROPHILS % (AUTO) 67.6 % (42.2-75.2); PLATELET COUNT (AUTO) 91 K/uL (140-450); RED BLOOD CELL COUNT(AUTO) 3.67 MIL/uL (4.20-6.10); RED CELL DISTRIBUTION WIDTH 17.4 % (11.6-13.7); WHITE BLOOD COUNT (AUTO) 4.4 K/uL (4.8-10.8)
[2024-07-16 06:02] LABS: ANION GAP 7.7 (8-16); CARBON DIOXIDE 30.9 mmol/L (21-32); CREATININE 1.1 mg/dL (0.6-1.3); POTASSIUM 3.6 mmol/L (3.5-5.1)
[2024-07-16] MEDS: amLODIPine 5 MG TAB PO SCH (15:37)
[2024-07-16] MEDS ORDERED: INSULIN LISPRO SLIDING SCALE 100 UNITS/ML VIAL SUBQ PRN (16:35)
[2024-07-16] MEDS: hydrALAZINE 10 MG TAB PO SCH (17:42)
[2024-07-16] MEDS: BLOOD GLUCOSE MONITORING 1 DEV DEV FS SCH (18:00)
[2024-07-17] VITALS (11 sets, daily range): BP systolic 133–152; BP diastolic 72–86; PULSE 60–73; RESP 16–22; TEMP 96.9–97.4; O2SAT 96–100
[2024-07-17 07:13] LABS: BASOPHILS % (AUTO) 0.2 % (0.0-2.0); EOSINOPHILS # (AUTO) 0.1 K/uL (0-0.4); EOSINOPHILS % (AUTO) 1.4 % (0.0-4.0); HEMATOCRIT 31.7 % (36-52); HEMOGLOBIN 10.6 g/dL (12.0-18.0); LYMPHOCYTES # (AUTO) 0.6 K/uL (2.0-11.5); LYMPHOCYTES % (AUTO) 16.2 % (20.5-51.1); MEAN CORPUSCULAR HEMOGLOBIN 28 pg (27-31); MEAN CORPUSCULAR HGB CONC 33 g/dL (33-37); MEAN CORPUSCULAR VOLUME 85.1 fL (80-94); MONOCYTES # (AUTO) 0.5 K/uL (0.8-1.0); MONOCYTES % (AUTO) 12.4 % (1.7-9.3); NEUTROPHILS # (AUTO) 2.6 K/uL (1.8-7.7); NEUTROPHILS % (AUTO) 69.8 % (42.2-75.2); PLATELET COUNT (AUTO) 78 K/uL (140-450); RED BLOOD CELL COUNT(AUTO) 3.73 MIL/uL (4.20-6.10); RED CELL DISTRIBUTION WIDTH 16.9 % (11.6-13.7); WHITE BLOOD COUNT (AUTO) 3.7 K/uL (4.8-10.8)
[2024-07-17 07:31] LABS: ANION GAP 6.9 (8-16); CALCIUM 9.4 mg/dL (8.5-10.1); CARBON DIOXIDE 32.8 mmol/L (21-32); CREATININE 0.8 mg/dL (0.6-1.3); POTASSIUM 3.7 mmol/L (3.5-5.1)
[2024-07-17 08:20] LABS: PHOSPHORUS 2.8 mg/dL (2.5-4.9)
[2024-07-17] MEDS ORDERED: MAG SULF 2000 MG/WATER PREMIX 50 ML IV ONE (10:20)
[2024-07-18] VITALS (12 sets, daily range): BP systolic 101–151; BP diastolic 55–95; PULSE 54–94; RESP 17–22; TEMP 96.7–98; O2SAT 96–100
[2024-07-18 05:15] LABS: BASOPHILS % (AUTO) 0.2 % (0.0-2.0); EOSINOPHILS # (AUTO) 0.1 K/uL (0-0.4); EOSINOPHILS % (AUTO) 1.7 % (0.0-4.0); HEMOGLOBIN 10.6 g/dL (12.0-18.0); LYMPHOCYTES # (AUTO) 0.7 K/uL (2.0-11.5); LYMPHOCYTES % (AUTO) 20.9 % (20.5-51.1); MEAN CORPUSCULAR HEMOGLOBIN 28 pg (27-31); MEAN CORPUSCULAR HGB CONC 33 g/dL (33-37); MEAN CORPUSCULAR VOLUME 84.9 fL (80-94); MONOCYTES # (AUTO) 0.5 K/uL (0.8-1.0); MONOCYTES % (AUTO) 13.7 % (1.7-9.3); NEUTROPHILS # (AUTO) 2.2 K/uL (1.8-7.7); NEUTROPHILS % (AUTO) 63.5 % (42.2-75.2); PLATELET COUNT (AUTO) 78 K/uL (140-450); RED BLOOD CELL COUNT(AUTO) 3.77 MIL/uL (4.20-6.10); RED CELL DISTRIBUTION WIDTH 16.9 % (11.6-13.7); WHITE BLOOD COUNT (AUTO) 3.5 K/uL (4.8-10.8)
[2024-07-18 05:19] LABS: ANION GAP 6.6 (8-16); CALCIUM 9.5 mg/dL (8.5-10.1); CARBON DIOXIDE 32.9 mmol/L (21-32); CREATININE 0.9 mg/dL (0.6-1.3); POTASSIUM 3.5 mmol/L (3.5-5.1)
[2024-07-18 05:22] LABS: MAGNESIUM 1.9 mg/dL (1.8-2.4); PHOSPHORUS 2.4 mg/dL (2.5-4.9)
[2024-07-19] VITALS (12 sets, daily range): BP systolic 127–165; BP diastolic 70–82; PULSE 60–88; RESP 16–19; TEMP 96–97.9; O2SAT 97–100
[2024-07-19 05:31] LABS: BASOPHILS % (AUTO) 0.1 % (0.0-2.0); EOSINOPHILS % (AUTO) 0.9 % (0.0-4.0); HEMATOCRIT 29.8 % (36-52); LYMPHOCYTES # (AUTO) 0.5 K/uL (2.0-11.5); LYMPHOCYTES % (AUTO) 13.3 % (20.5-51.1); MEAN CORPUSCULAR HEMOGLOBIN 28 pg (27-31); MEAN CORPUSCULAR HGB CONC 34 g/dL (33-37); MEAN CORPUSCULAR VOLUME 84.6 fL (80-94); MONOCYTES # (AUTO) 0.4 K/uL (0.8-1.0); MONOCYTES % (AUTO) 9.5 % (1.7-9.3); NEUTROPHILS % (AUTO) 76.2 % (42.2-75.2); PLATELET COUNT (AUTO) 78 K/uL (140-450); RED BLOOD CELL COUNT(AUTO) 3.53 MIL/uL (4.20-6.10); RED CELL DISTRIBUTION WIDTH 16.7 % (11.6-13.7); WHITE BLOOD COUNT (AUTO) 3.9 K/uL (4.8-10.8)
[2024-07-19 05:49] LABS: MAGNESIUM 1.6 mg/dL (1.8-2.4); PHOSPHORUS 2.4 mg/dL (2.5-4.9)
[2024-07-19 07:26] LABS: ANION GAP 8.7 (8-16); CALCIUM 9.2 mg/dL (8.5-10.1); CARBON DIOXIDE 32.7 mmol/L (21-32); CREATININE 0.8 mg/dL (0.6-1.3); POTASSIUM 3.4 mmol/L (3.5-5.1)
[2024-07-19] MEDS ORDERED: POLYVINYL ALCOHOL 1.4% OP 15 ML SOL OP SCH (09:42)
[2024-07-19] MEDS: MAG SULF 2000 MG/WATER PREMIX 50 ML IV SCH (11:00)
[2024-07-19] MEDS: POLYVINYL ALCOHOL 1.4% OP 15 ML SOL OP SCH (13:00)
[2024-07-19] MEDS: POTASSIUM PHOSPHATE 15 MM in NACL 0.9% 250 ML IV ONE (14:52)
[2024-07-19] MEDS: DEXT 5% / NACL 0.45% 1,000 ML IV SCH (16:08)
[2024-07-20] VITALS (14 sets, daily range): BP systolic 139–152; BP diastolic 63–82; PULSE 67–84; RESP 16–20; TEMP 96.2–98; O2SAT 72–100
[2024-07-20 05:27] LABS: BASOPHILS % (AUTO) 0.2 % (0.0-2.0); EOSINOPHILS % (AUTO) 0.5 % (0.0-4.0); HEMATOCRIT 29.3 % (36-52); HEMOGLOBIN 10.1 g/dL (12.0-18.0); LYMPHOCYTES # (AUTO) 0.5 K/uL (2.0-11.5); LYMPHOCYTES % (AUTO) 11.4 % (20.5-51.1); MEAN CORPUSCULAR HEMOGLOBIN 29 pg (27-31); MEAN CORPUSCULAR HGB CONC 34 g/dL (33-37); MEAN CORPUSCULAR VOLUME 83.9 fL (80-94); MONOCYTES # (AUTO) 0.3 K/uL (0.8-1.0); MONOCYTES % (AUTO) 7.9 % (1.7-9.3); NEUTROPHILS # (AUTO) 3.4 K/uL (1.8-7.7); PLATELET COUNT (AUTO) 94 K/uL (140-450); RED BLOOD CELL COUNT(AUTO) 3.49 MIL/uL (4.20-6.10); RED CELL DISTRIBUTION WIDTH 16.2 % (11.6-13.7); WHITE BLOOD COUNT (AUTO) 4.3 K/uL (4.8-10.8)
[2024-07-20 05:57] LABS: ANION GAP 8.8 (8-16); CALCIUM 9.2 mg/dL (8.5-10.1); CARBON DIOXIDE 33.2 mmol/L (21-32); CREATININE 0.8 mg/dL (0.6-1.3)
[2024-07-20 06:27] LABS: MAGNESIUM 1.9 mg/dL (1.8-2.4); PHOSPHORUS 2.3 mg/dL (2.5-4.9)
[2024-07-20] MEDS: DEXTROSE 50% 50 ML SYR IVP PRN (12:16)
[2024-07-20] MEDS: POTASSIUM PHOSPHATE 15 MM in NACL 0.9% 250 ML IV SCH (12:29)
[2024-07-20 19:29] LABS: INR 0.99 (0.8-1.2); PROTHROMBIN TIME 10.4 secs (10.8-13.4)
[2024-07-20 19:31] LABS: ALBUMIN 2.5 g/dL (3.4-5.0); BILIRUBIN,DIRECT 0.2 mg/dL (0.0-0.3); TOTAL PROTEIN, SERUM 6.3 g/dL (6.4-8.2)
[2024-07-21] VITALS (10 sets, daily range): BP systolic 111–150; BP diastolic 52–100; PULSE 64–90; RESP 16–20; TEMP 97.1–97.7; O2SAT 94–100
[2024-07-21 05:52] LABS: BASOPHILS % (AUTO) 0.1 % (0.0-2.0); EOSINOPHILS % (AUTO) 0.5 % (0.0-4.0); HEMOGLOBIN 9.2 g/dL (12.0-18.0); LYMPHOCYTES # (AUTO) 0.6 K/uL (2.0-11.5); LYMPHOCYTES % (AUTO) 9.6 % (20.5-51.1); MEAN CORPUSCULAR HEMOGLOBIN 29 pg (27-31); MEAN CORPUSCULAR HGB CONC 34 g/dL (33-37); MEAN CORPUSCULAR VOLUME 84.1 fL (80-94); MONOCYTES # (AUTO) 0.4 K/uL (0.8-1.0); NEUTROPHILS % (AUTO) 82.8 % (42.2-75.2); PLATELET COUNT (AUTO) 106 K/uL (140-450); RED BLOOD CELL COUNT(AUTO) 3.21 MIL/uL (4.20-6.10); RED CELL DISTRIBUTION WIDTH 16.2 % (11.6-13.7); WHITE BLOOD COUNT (AUTO) 6.1 K/uL (4.8-10.8)
[2024-07-21 07:02] LABS: CALCIUM 8.3 mg/dL (8.5-10.1); CARBON DIOXIDE 31.1 mmol/L (21-32); POTASSIUM 3.1 mmol/L (3.5-5.1)
[2024-07-21 07:04] LABS: MAGNESIUM 1.4 mg/dL (1.8-2.4); PHOSPHORUS 2.3 mg/dL (2.5-4.9)
[2024-07-21] MEDS: POTASSIUM CHLORIDE 40 MEQ, LIDOCAINE 1% 25 MG in NACL 0.9% 250 ML IV ONE (10:35)
[2024-07-21] MEDS: fentaNYL citrate 0.05 MG/ML VIAL ONE (12:04)
[2024-07-21] MEDS: MIDAZOLAM 5 MG/5 ML VIAL ONE (12:04)
[2024-07-21] MEDS: LIDOCAINE 1% 500 MG/50 ML VIAL ONE (12:05)
[2024-07-21] MEDS: MIDAZOLAM 2 MG/2 ML VIAL IVP ONE (12:34)
[2024-07-21] MEDS: fentaNYL citrate 0.05 MG/ML VIAL IVP ONE (14:01)
[2024-07-21 16:26] LABS: HEMATOCRIT 24.9 % (36-52); HEMOGLOBIN 8.1 g/dL (12.0-18.0)
[2024-07-21] MEDS: LACTULOSE 20 GM/30 ML UDC PO SCH (22:16)
[2024-07-22] VITALS (7 sets, daily range): BP systolic 107–148; BP diastolic 60–64; PULSE 77–91; RESP 16–19; TEMP 96.8–97.8; O2SAT 95–100
[2024-07-22 05:51] LABS: BASOPHILS % (AUTO) 0.2 % (0.0-2.0); EOSINOPHILS % (AUTO) 0.5 % (0.0-4.0); HEMATOCRIT 27.7 % (36-52); HEMOGLOBIN 9.3 g/dL (12.0-18.0); LYMPHOCYTES # (AUTO) 0.9 K/uL (2.0-11.5); LYMPHOCYTES % (AUTO) 10.4 % (20.5-51.1); MEAN CORPUSCULAR HEMOGLOBIN 29 pg (27-31); MEAN CORPUSCULAR HGB CONC 34 g/dL (33-37); MONOCYTES # (AUTO) 0.4 K/uL (0.8-1.0); MONOCYTES % (AUTO) 4.4 % (1.7-9.3); NEUTROPHILS % (AUTO) 84.5 % (42.2-75.2); PLATELET COUNT (AUTO) 111 K/uL (140-450); RED BLOOD CELL COUNT(AUTO) 3.25 MIL/uL (4.20-6.10); RED CELL DISTRIBUTION WIDTH 16.6 % (11.6-13.7); WHITE BLOOD COUNT (AUTO) 8.2 K/uL (4.8-10.8)
[2024-07-22 06:03] LABS: ANION GAP 7.5 (8-16); CALCIUM 8.5 mg/dL (8.5-10.1); POTASSIUM 3.5 mmol/L (3.5-5.1)
[2024-07-22 06:29] LABS: MAGNESIUM 1.5 mg/dL (1.8-2.4)
[2024-07-22] MEDS ORDERED: APR10 PO (10:37)
[2024-07-22] MEDS: MAG SULF 2000 MG/WATER PREMIX 50 ML IV SCH (11:07)
[2024-07-22] MEDS: POTASSIUM PHOSPHATE 15 MM in NACL 0.9% 250 ML IV ONE (12:09)
== END 2024-07-22 13:10 | DRG 871 ==
LOC: MED 11:56 → MMU 18:15 → MTU 18:38 → MIC 07-11 10:22 → MTU 07-16 18:50
PROVIDERS: ADMIT Family Medicine; ATTEND Family Medicine
PROC: 5A1945Z Respiratory Ventilation, 24-96 Consecutive Hours (ICD-10-PCS; principal; 2024-07-11)
PROC: 0BH17EZ Insertion of Endotracheal Airway into Trachea, Via Natural or Artificial Opening (ICD-10-PCS; 2024-07-11)
PROC: 0DH68UZ Insertion of Feeding Device into Stomach, Via Natural or Artificial Opening Endoscopic (ICD-10-PCS; 2024-07-21)
DX: A41.9 Sepsis, unspecified organism (principal); G93.41 Metabolic encephalopathy; R65.21 Severe sepsis with septic shock; K29.71 Gastritis, unspecified, with bleeding; J69.0 Pneumonitis due to inhalation of food and vomit; J96.01 Acute respiratory failure with hypoxia; N39.0 Urinary tract infection, site not specified; E87.0 Hyperosmolality and hypernatremia; E46 Unspecified protein-calorie malnutrition; N17.9 Acute kidney failure, unspecified; T83.83XA Hemorrhage due to genitourinary prosthetic devices, implants and grafts, initial encounter; D64.9 Anemia, unspecified; E86.0 Dehydration; E16.2 Hypoglycemia, unspecified; E87.6 Hypokalemia; Y65.8 Other specified misadventures during surgical and medical care; D69.6 Thrombocytopenia, unspecified; E86.1 Hypovolemia; I10 Essential (primary) hypertension; G30.9 Alzheimer's disease, unspecified; F02.80 Dementia in other diseases classified elsewhere, unspecified severity, without behavioral disturbance, psychotic disturbance, mood disturbance, and anxiety; R62.7 Adult failure to thrive; Z78.1 Physical restraint status; Z79.899 Other long term (current) drug therapy; Z68.29 Body mass index [BMI] 29.0-29.9, adult
CPT/HCPCS: 31500; 36415; 70450; 71045; 76700; 76770; 80048; 80076; 80202; 81001; 82140; 82150; 82948; 83036; 83605; 83690; 83735; 83880; 84100; 84436; 84439; 84443; 84479; 84484; 85018; 85025; 85610; 85730; 87040; 87070; 87081; 87086; 87205; 92526; 93005; 94002; 94003; 94640; 96365; 96372; 96375; 96376; 97110; 97112; 97163-GP; 97530; 99285; J0696; J1650; J1815; J1940; J2001; J2060; J2250; J2470; J2543; J2704; J3010; J3370; J3475; J3480; J3490; J7030; J7060; J7608; Q0092